=== PATIENT | female | born 1930 | race Caucasian/White ===

== ENCOUNTER 2017-04-03 06:06 | Observation (INO) | payer OTHER ==
[2017-04-03] VITALS (9 sets, daily range): BP systolic 114–148; BP diastolic 61–72; PULSE 63–84; RESP 16–20; TEMP 96.8–98.1; O2SAT 93–97
[~2017-04-03] VITALS: Ht 167.6 cm; Wt 70.4 kg
[~2017-04-03 06:06] MED LIST: ASPI81 PO; CARV12.52 OR; CENTTAB9 PO; CIPR500T4 PO; COQ1150C2 PO; COZA100T PO; D3400CAP OR; HYDR-2768 PO; MAGN250T5 OR; NIAC500T34 PO; NIFE1TAB86 PO; OMEG875C PO; OYST500T71 PO; ROSU5 PO
[2017-04-03] MEDS ORDERED: SODIUM CHLORIDE 0.9% FLUSH 10 ML FLUSH IV FLUSH PRN ×2 (06:30→09:30)
[2017-04-03] MEDS ORDERED: CARV12.52 PO (06:31)
[2017-04-03] MEDS ORDERED: MAGN400T2 PO (06:31)
[2017-04-03] MEDS ORDERED: PRAV20TA2 PO (06:31)
[2017-04-03] MEDS ORDERED: AMLO5TAB2 PO (06:31)
[2017-04-03] MEDS ORDERED: COEN400C PO (06:31)
[2017-04-03] MEDS ORDERED: CALC950T2 PO (06:31)
[2017-04-03] MEDS ORDERED: POTA10CA PO (06:31)
--- NOTE | 2017-04-03 06:45 | PD ---
HPI Chief Complaint: GI Complaint Time Seen by Provider: 06:28 Travel History International Travel<30 days: No Contact w/Intl Traveler<30days: No Traveled to known affect area: No History of Present Illness HPI Patient is an 87-year-old female presents emergency department for evaluation of mild abdominal cramping and hematochezia. Patient states that ever since she gone out to dinner tonight's ago she's been having some lower quadrant abdominal cramping intermittently. She would pass but then became alarmed this morning when she had a bowel movement and the bowl turned red. She states she thinks it was just a small amount of blood in it was diluted into the water. States is never happened to her before, denies any hypovolemic symptoms. Denies any blood thinner use, denies any fevers denies any dysuria denies any nausea or vomiting. PFSH Past Medical History Cardiovascular Problems: Yes High Cholesterol: Yes Coronary Artery Disease: Yes Diminished Hearing: No Hypertension: Yes Tetanus Vaccination: Unknown Influenza Vaccination: Yes ?: Not Menopausal: Yes Tubal Ligation: Yes Past Surgical History Cardiac Surgery: Yes Coronary Artery Bypass Graft: Yes (2008) Tonsillectomy: Yes Social History Alcohol Use: Yes (OCCASIONAL) Tobacco Use: No Substance Use: No Allergies-Medications (Allergen,Severity, Reaction): Coded Allergies: diatrizoate meglumine (Unverified Allergy, Severe, Shortness of Breath, ) gadobenic acid (Unverified Allergy, Severe, Shortness of Breath, 04/03/17) gadodiamide (Unverified Allergy, Severe, Shortness of Breath, 04/03/17) gadoteridol (Unverified Allergy, Severe, Shortness of Breath, 04/03/17) iodine (Unverified Allergy, Severe, Shortness of Breath, 04/03/17) iodixanol (Unverified Allergy, Severe, Shortness of Breath, 04/03/17) iohexol (Unverified Allergy, Severe, Shortness of Breath, 04/03/17) potassium iodide (Unverified Allergy, Severe, Shortness of Breath, ) povidone-iodine (Unverified Allergy, Severe, Shortness of Breath, 04/03/17 ) sodium iodide (Unverified Allergy, Severe, Shortness of Breath, 04/03/17) sodium iodide (Unverified Allergy, Severe, Shortness of Breath, 04/03/17) adhesive (Unverified Allergy, Intermediate, SKIN IRRITATION, 04/03/17) Reported Meds & Prescriptions Reported Meds & Active Scripts Active Reported Coq-10 (Coenzyme Q10 (Ubidecarenone)) 400 Mg Cap 100 Mg PO DAILY Pravastatin 20 Mg Tab 20 Mg PO DAILY Magnesium Oxide 400 Mg Tab 400 Mg PO DAILY Calcitrate (Calcium Citrate) 200 Mg (950 Mg) Tab 950 Mg PO Potassium Chloride ER (Potassium Chloride) 10 Meq Cap 10 Meq PO DAILY Amlodipine (Amlodipine Besylate) 5 Mg Tab 5 Mg PO DAILY Carvedilol 12.5 Mg Tab 12.5 Mg PO BID Review of Systems Except as stated in HPI: all other systems reviewed are Neg Physical Exam Narrative GENERAL: Well-developed well-nourished, no apparent distress, sitting upright in a stretcher reading from a tablet computer. SKIN: Focused skin assessment warm/dry. HEAD: Atraumatic. Normocephalic. EYES: Pupils equal and round. No scleral icterus. No injection or drainage. ENT: No nasal bleeding or discharge. Mucous membranes pink and moist. NECK: Trachea midline. No JVD. CARDIOVASCULAR: Regular rate and rhythm. No murmur appreciated. RESPIRATORY: No accessory muscle use. Clear to auscultation. Breath sounds equal bilaterally. GASTROINTESTINAL: Abdomen soft, non-tender, nondistended. Hepatic and splenic margins not palpable. No rebound no percussive tenderness, no tenderness to deep palpation. Rectal exam does show small dried blood around the anus and on the gluteal skin. There is also minimal gross blood on internal exam. Skin tags but no hemorrhoids internally nor externally. MUSCULOSKELETAL: No obvious deformities. No clubbing. No cyanosis. No edema. NEUROLOGICAL: Awake and alert. No obvious cranial nerve deficits. Motor grossly within normal limits. Normal speech. PSYCHIATRIC: Appropriate mood and affect; insight and judgment normal. Data Data Last Documented VS Vital Signs Date Time Temp Pulse Resp B/P (MAP) Pulse Ox O2 Delivery O2 Flow Rate FiO2 04/03/17 06:34 18 96 Room Air 04/03/17 06:08 97.4 84 Orders Orders Complete Blood Count With Diff (04/03/17 06:28) Comprehensive Metabolic Panel (04/03/17 06:28) Lipase (04/03/17 06:28) Prothrombin Time / Inr (Pt) (04/03/17 06:28) Act Partial Throm Time (Ptt) (04/03/17 06:28) Urinalysis - C+S If Indicated (04/03/17 06:28) Iv Access Insert/Monitor (04/03/17 06:28) Ecg Monitoring (04/03/17 06:28) Oximetry (04/03/17 06:28) Sodium Chloride 0.9% Flush (Ns Flush) (04/03/17 06:30) Ct Abd/Pel W/O Iv Contrast (04/03/17 ) Labs Laboratory Tests Test 04/03/17 06:30 MDM Medical Decision Making Medical Screen Exam Complete: Yes Emergency Medical Condition: Yes Differential Diagnosis AVM, diverticulitis, diverticulosis, malignancy seems unlikely, gastritis, gastroenteritis, colitis. Narrative Course Patient roomed in emergency department, given the patient's age workup to ensue , basic labs sent, CT abdomen without contrast ordered as patient has multiple iodine allergies. Will be discussed with the oncoming provider at 0700 to follow-up the laboratory workup and imaging and disposition appropriately. Crow Rodriguez MD Apr 03, 2017 06:45
[2017-04-03 06:48] LABS: AUTOMATED NEUTROPHIL # 8.2 TH/MM3 (1.8-7.7); BASOPHIL # 0.1 TH/MM3 (0-0.2); BASOPHIL % 0.6 % (0.0-2.0); EOSINOPHIL # 0.4 TH/MM3 (0-0.4); EOSINOPHIL % 3.5 % (0.0-4.0); HEMATOCRIT 45.4 % (35.0-46.0); LYMPH % 15.6 % (9.0-44.0); LYMPHOCYTE # 1.7 TH/MM3 (1.0-4.8); MEAN CELL VOLUME 87.5 FL (80.0-100.0); MEAN CORPUSCULAR HEMOGLOBIN 28.9 PG (27.0-34.0); MEAN CORPUSCULAR HGB CONC 33.1 % (32.0-36.0); MONO % 4.4 % (0.0-8.0); NEUT % 75.9 % (16.0-70.0); PLATELET COUNT 275 TH/MM3 (150-450); RED CELL DISTRIBUTION WIDTH 13.3 % (11.6-17.2); WHITE BLOOD COUNT 10.9 TH/MM3 (4.0-11.0)
[2017-04-03 06:50] LABS: HEMO FLAGS DIFF FINAL
[2017-04-03 06:55] LABS: CHLORIDE 104 MEQ/L (98-107); POTASSIUM 3.5 MEQ/L (3.5-5.1); SODIUM (NA) 139 MEQ/L (136-145)
[2017-04-03 06:59] LABS: ANION GAP 9 MEQ/L (5-15); APTT (PATIENT) 25.4 SEC (24.3-30.1); BICARBONATE 26.5 MEQ/L (21.0-32.0); BLOOD UREA NITROGEN 22 MG/DL (7-18); PROTHROMBIN TIME - PATIENT 11.3 SEC (9.8-11.6)
[2017-04-03 07:01] LABS: ALT (GPT) 48 U/L (10-53)
[2017-04-03 07:02] LABS: AST (GOT) 27 U/L (15-37); GLOMERULAR FILTRATION RATE 47 ML/MIN (>89)
[2017-04-03 07:03] LABS: TOTAL BILIRUBIN ADULT 0.8 MG/DL (0.2-1.0)
[2017-04-03 07:04] LABS: ALKALINE PHOSPHATASE 108 U/L (45-117)
--- NOTE | 2017-04-03 07:52 | RADRPT ---
EXAM DATE/TIME: 04/03/2017 07:27 [facility] COMPARISON: No previous studies available for comparison. INDICATIONS : Rectal bleeding. ORAL CONTRAST: No oral contrast ingested. RADIATION DOSE: 13.68 CTDIvol (mGy) MEDICAL HISTORY : Hypertension. Cardiovascular disease SURGICAL HISTORY : Tubal ligation. CABGVaginal pessary. ENCOUNTER: Initial ACUITY: 1 day PAIN SCALE: 0/10 LOCATION: rectal TECHNIQUE: Volumetric scanning of the abdomen and pelvis was performed. Using automated exposure control and ad justment of the mA and/or kV according to patient size, radiation dose was kept as low as reasonably achievable to obtain optimal diagnostic quality images. DICOM format image data is available electro nically for review and comparison. FINDINGS: LOWER LUNGS: Basilar bronchiectasis. Coronary artery atherosclerotic calcifications. Tiny hiatal hernia. LIVER: Homogeneous density without lesion. There is no dilation of the biliary tree. Small layering calcifi ed gallstones within an otherwise normal-appearing gallbladder. SPLEEN: Normal size without lesion. PANCREAS: Within normal limits. KIDNEYS: Normal in size and shape. There is no mass, stone, or hydronephrosis. Small peripelvic cysts noted o n the right. An area of cortical scarring seen involving the lateral midpole the left kidney. ADRENAL GLANDS: Within normal limits. VASCULAR: There is diffuse calcified plaque involving the aorta and its major branches. No aneurysmal change ob served. 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 BOWEL/MESENTERY: Circumferential wall thickening with stranding of the adjacent mesentery involving the descending col on. This extends from the splenic flexure to the mid sigmoid colon. There are scattered diverticuli w ithin the sigmoid colon with no diverticula appreciated in the descending component. There is no free air or free fluid. No abscess or obstruction. Stomach and small bowel are unremarkable on this unenh anced study. ABDOMINAL WALL: Within normal limits. RETROPERITONEUM: There is no lymphadenopathy. BLADDER: No wall thickening or mass. REPRODUCTIVE: A pessary is noted. The uterus lies within the midline. INGUINAL: There is no lymphadenopathy or hernia. MUSCULOSKELETAL: Within normal limits for patient age. CONCLUSION: 1. Acute inflammatory process extending from the splenic flexure to the mid sigmoid colon. This infla mmatory process could be secondary to an infectious process or could relate to ischemic colitis. 2. Left-sided IVC. 3. Cholelithiasis. 4. Bibasilar bronchiectasis.. Tip Green Jr., MD on April 03, 2017 at 7:43 Board Certified Radiologist. This report was verified electronically.
[2017-04-03] MEDS ORDERED: SODIUM CHLOR 0.9% 1000 ML INJ 1,000 ML IV ONE (08:00)
[2017-04-03 08:17] LABS: METHOD OF COLLECTION VOIDED; URINE COLOR YELLOW (YELLW/STRAW)
[2017-04-03 08:18] LABS: BLOOD, URINE LARGE (NEG); GLUCOSE,URINE NEG (NEG); KETONE, URINE NEG (NEG); NITRITE,URINE NEG (NEG)
[2017-04-03 08:20] LABS: BACTERIA, URINE FEW /hpf; COMMENT (UR) CULTURE INDICATED; CULTURE IF INDICATED CULTURE INDICATED; TRANSITIONAL EPI CELLS, URINE 0-2 /hpf; WBC, URINE INNUM /hpf (0-5)
--- NOTE | 2017-04-03 08:35 | PD ---
Physical Exam Date Seen by Provider: Apr 03, 2017 Time Seen by Provider: 08:32 Narrative 87-year-old female came to the emergency room with history of abdominal pain followed by bloody stool since last night. Patient was seen by the previous ER physician. Please refer to his history and physical for further details. Sign out was to follow-up on the labs and the CAT scan result. I had gone to see the patient earlier and she said she had some slight discomfort mostly in the lower abdominal area. Previous physician had done a rectal exam which was positive for gross blood. CBC and BMP were within acceptable limits. UA suggestive strongly of a UTI and I have ordered by mouth Macrobid for the patient. Meanwhile the CT scan was done without IV contrast since patient is allergic to the IV contrast and it shows inflammatory changes on the descending colon and the adjacent mesentery with stranding. The concern is infectious or ischemic changes of the colon. I've ordered a lactic acid at this point. Awaiting for the test result. I will also give the patient 1 L of IV fluid bolus. Her vital signs remain stable. Patient does not have the pain out of proportion presentation. Data Data Last Documented VS Vital Signs Date Time Temp Pulse Resp B/P (MAP) Pulse Ox O2 Delivery O2 Flow Rate FiO2 04/03/17 08:24 64 18 127/66 (86) 96 Room Air 04/03/17 06:08 97.4 Orders Orders Complete Blood Count With Diff (04/03/17 06:28) Comprehensive Metabolic Panel (04/03/17 06:28) Lipase (04/03/17 06:28) Prothrombin Time / Inr (Pt) (04/03/17 06:28) Act Partial Throm Time (Ptt) (04/03/17 06:28) Urinalysis - C+S If Indicated (04/03/17 06:28) Iv Access Insert/Monitor (04/03/17 06:28) Ecg Monitoring (04/03/17 06:28) Oximetry (04/03/17 06:28) Sodium Chloride 0.9% Flush (Ns Flush) (04/03/17 06:30) Ct Abd/Pel W/O Iv Contrast (04/03/17 ) Lactic Acid (04/03/17 08:00) Sodium Chlor 0.9% 1000 Ml Inj (Ns 1000 M (04/03/17 08:00) Urine Culture (04/03/17 08:00) Nitrofurantoin Monohyd Macrocr (Macrobid (04/03/17 08:45) Consult Colorectal Surgery (04/03/17 ) Admit Order (Ed Use Only) (04/03/17 09:14) Labs Laboratory Tests Test 04/03/17 06:30 04/03/17 08:00 White Blood Count 10.9 TH/MM3 Red Blood Count 5.20 MIL/MM3 Hemoglobin 15.0 GM/DL Hematocrit 45.4 % Mean Corpuscular Volume 87.5 FL Mean Corpuscular Hemoglobin 28.9 PG Mean Corpuscular Hemoglobin Concent 33.1 % Red Cell Distribution Width 13.3 % Platelet Count 275 TH/MM3 Mean Platelet Volume 8.2 FL Neutrophils (%) (Auto) 75.9 % Lymphocytes (%) (Auto) 15.6 % Monocytes (%) (Auto) 4.4 % Eosinophils (%) (Auto) 3.5 % Basophils (%) (Auto) 0.6 % Neutrophils # (Auto) 8.2 TH/MM3 Lymphocytes # (Auto) 1.7 TH/MM3 Monocytes # (Auto) 0.5 TH/MM3 Eosinophils # (Auto) 0.4 TH/MM3 Basophils # (Auto) 0.1 TH/MM3 CBC Comment DIFF FINAL Differential Comment Prothrombin Time 11.3 SEC Prothromb Time International Ratio 1.0 RATIO Activated Partial Thromboplast Time 25.4 SEC Blood Urea Nitrogen 22 MG/DL Creatinine 1.10 MG/DL Random Glucose 119 MG/DL Total Protein 7.9 GM/DL Albumin 4.0 GM/DL Calcium Level 9.2 MG/DL Alkaline Phosphatase 108 U/L Aspartate Amino Transf (AST/SGOT) 27 U/L Alanine Aminotransferase (ALT/SGPT) 48 U/L Total Bilirubin 0.8 MG/DL Sodium Level 139 MEQ/L Potassium Level 3.5 MEQ/L Chloride Level 104 MEQ/L Carbon Dioxide Level 26.5 MEQ/L Anion Gap 9 MEQ/L Estimat Glomerular Filtration Rate 47 ML/MIN Lipase 131 U/L Urine Collection Type VOIDED Urine Color YELLOW Urine Turbidity CLOUDY Urine pH 6.0 Urine Specific [place] 1.012 Urine Protein 30 mg/dL Urine Glucose (UA) NEG mg/dL Urine Ketones NEG mg/dL Urine Occult Blood LARGE Urine Nitrite NEG Urine Bilirubin NEGATIVE Urine Leukocyte Esterase LARGE Urine RBC 10-14 /hpf Urine WBC INNUM /hpf Urine WBC Clumps FEW Urine Squamous Epithelial Cells 3-5 /hpf Urine Transitional Epithelial Cells 0-2 /hpf Urine Bacteria FEW /hpf Microscopic Urinalysis Comment CULTURE INDICATED Lactic Acid Level 1.6 mmol/L MDM Supervised Visit with NINOSKA: No Narrative Course 9:12 AM lactic acid is within acceptable limits. I discussed her case with patient's colorectal surgeon Dr. Clemencia Cintron. She agreed that patient should be admitted at her age with these symptoms. She will consult on the patient. She does not recommend doing anything else at this point. I discussed with the hospitalist and he is accepted the case. I have discussed this with the patient herself and she is okay with the plan. Physician Communication Physician Communication Dr. Cintron Diagnosis Primary Impression: Colitis Additional Impressions: Hematochezia UTI (urinary tract infection) Qualified Codes: N39.0 - Urinary tract infection, site not specified Admitting Information Admitting Physician Requests: Observation Scripts Metronidazole (Metronidazole) 500 Mg Tab 500 MG PO TID for Infection, #21 TAB 0 Refills Prov: Anjelica Simmons MD 04/04/17 Ciprofloxacin (Cipro) 500 Mg Tab 500 MG PO Q12HR for Infection, #14 TAB Prov: Anjelica Simmons MD 04/04/17 Usman Fu MD Apr 03, 2017 08:35
[2017-04-03] MEDS ORDERED: NITROFURANTOIN MONOHYD MACROCR 100 MG CAP PO ONE (08:45)
[2017-04-03] MEDS ORDERED: ONDANSETRON HCL 4 MG/2 ML VIAL IVP PRN (09:30)
[2017-04-03] MEDS ORDERED: MAGNESIUM HYDROXIDE SUSP 30 ML CUP PO PRN (09:30)
[2017-04-03] MEDS ORDERED: ACETAMINOPHEN 325 MG TAB PO PRN ×2 (09:30)
[2017-04-03] MEDS ORDERED: NALOXONE HCL 0.4 MG/ML AMP IV PUSH PRN (09:30)
--- NOTE | 2017-04-03 10:47 | HHI.HP ---
[facility] Non[facility]Staff Admission Diagnosis colitis, hematochezia, UTI Diagnoses: (1) Colitis Diagnosis: Principal (2) Hematochezia Diagnosis: Principal (3) UTI (urinary tract infection) Diagnosis: Principal Chief Complaint: Abdominal pain Travel History International Travel<30 Days: No Contact w/Intl Traveler <30 Da: No Traveled to Known Affected Are: No History of Present Illness Written by Abilio Fernando, acting as scribe for Dr. Garcia on 04/03/17 at 10 :46. 87-year-old female with known history of hypertension, hyperlipidemia , coronary artery disease who presented to hospital because of abdominal pain and bright red blood per rectum. Patient indicates that she is in normal state of health until yesterday approximately 2 PM when she started developing abdominal pain located across the lower abdomen. She went to a restaurant in order to eat, however she had to go to the bathroom at that time. She stated that she had a rather large bowel movement followed by 2 other bowel movements at the restaurant. She lost her appetite and only had some chicken broth. Patient continued with lower abdominal discomfort in which she went home she had another bowel movement which she noticed that the toilet bowl was red and she saw a clot on the bottom of the toilet bowl. She states that she continued to have bowel movements throughout the evening with blood until she states that she was only having blood coming out of her rectum. Because it did not improve she came to emergency department for evaluation. Patient indicates that Dr. Cintron has done her previous colonoscopy and she has never had any problems that she knows of. She was cleared to never had colonoscopy again. The patient denies any sick contacts, diarrhea, nausea, vomiting. Patient had workup done emergency department and found to have an abnormal CT with information indicating inflammatory process possible infectious or ischemic colitis. Review of Systems Gastrointestinal: COMPLAINS OF: Abdominal pain, Bloody stools Except as stated in HPI: all other systems reviewed are Neg Past Family Social History Past Medical History Hypertension Hyperlipidemia Coronary artery disease Past Surgical History Tonsillectomy Coronary bypass surgery Tubal ligation Colonoscopy by Dr. Diez Reported Medications Reported Meds & Active Scripts Active Reported Coq-10 (Coenzyme Q10 (Ubidecarenone)) 400 Mg Cap 100 Mg PO DAILY Pravastatin 20 Mg Tab 20 Mg PO DAILY Magnesium Oxide 400 Mg Tab 400 Mg PO DAILY Calcitrate (Calcium Citrate) 200 Mg (950 Mg) Tab 950 Mg PO Potassium Chloride ER (Potassium Chloride) 10 Meq Cap 10 Meq PO DAILY Amlodipine (Amlodipine Besylate) 5 Mg Tab 5 Mg PO DAILY Carvedilol 12.5 Mg Tab 12.5 Mg PO BID Allergies: Coded Allergies: diatrizoate meglumine (Unverified Allergy, Severe, Shortness of Breath, ) gadobenic acid (Unverified Allergy, Severe, Shortness of Breath, 04/03/17) gadodiamide (Unverified Allergy, Severe, Shortness of Breath, 04/03/17) gadoteridol (Unverified Allergy, Severe, Shortness of Breath, 04/03/17) iodine (Unverified Allergy, Severe, Shortness of Breath, 04/03/17) iodixanol (Unverified Allergy, Severe, Shortness of Breath, 04/03/17) iohexol (Unverified Allergy, Severe, Shortness of Breath, 04/03/17) potassium iodide (Unverified Allergy, Severe, Shortness of Breath, ) povidone-iodine (Unverified Allergy, Severe, Shortness of Breath, 04/03/17 ) sodium iodide (Unverified Allergy, Severe, Shortness of Breath, 04/03/17) sodium iodide (Unverified Allergy, Severe, Shortness of Breath, 04/03/17) adhesive (Unverified Allergy, Intermediate, SKIN IRRITATION, 04/03/17) Family History Reviewed is significant for father from massive stroke. Mother at age 67 with hypertension Social History Patient quit smoking 50 years ago prior to that she only smokes socially. Denies any alcohol or illicit drugs Physical Exam Vital Signs Vital Signs Date Time Temp Pulse Resp B/P (MAP) Pulse Ox O2 Delivery O2 Flow Rate FiO2 04/03/17 09:56 97.9 63 16 148/67 (94) 97 04/03/17 09:44 04/03/17 08:24 64 18 127/66 (86) 96 Room Air 04/03/17 06:34 18 96 Room Air 04/03/17 06:34 18 04/03/17 06:08 97.4 84 16 136/70 (92 96 Physical Exam GENERAL: Well-developed, well-nourished, in no acute distress. alert and orientated HEENT: Head is normocephalic without any lesions or masses noted. Facial features are symmetric. Eyes: Pupils equal round reactive to light. Extraocular muscles are intact. Conjunctivae were clear. Oropharyngeal: Pharynx without any erythema edema. Tongue is midline without deviation. Buccal mucosa is moist without any masses or lesions NECK: Supple without any masses. Trachea midline no deviation. No JVD, no bruits are appreciated CARDIAC: Regular rhythm, regular rate. S1/S2 are heard. No murmurs gallops or rubs. LUNGS: Clear to auscultation bilaterally. No wheeze, rhonchi or rales. No use of accessory muscles on inspiration or expiration. ABDOMEN: Soft, nontender. Nondistended. Bowel sounds heard in all 4 quadrants. No organomegaly or masses. Negative rebound, negative guarding EXTREMITIES: No edema, pulses are equal bilaterally. No cyanosis or clubbing NEUROLOGY: Mood and affect appear appropriate. Cranial nerves II through XII grossly intact. Muscle strength 5/5 in upper and lower extremities bilaterally. Deep tendon reflexes are 2+ in upper and lower extremities bilaterally. Laboratory Laboratory Tests Test 04/03/17 06:30 04/03/17 08:00 White Blood Count 10.9 Red Blood Count 5.20 Hemoglobin 15.0 Hematocrit 45.4 Mean Corpuscular Volume 87.5 Mean Corpuscular Hemoglobin 28.9 Mean Corpuscular Hemoglobin Concent 33.1 Red Cell Distribution Width 13.3 Platelet Count 275 Mean Platelet Volume 8.2 Neutrophils (%) (Auto) 75.9 Lymphocytes (%) (Auto) 15.6 Monocytes (%) (Auto) 4.4 Eosinophils (%) (Auto) 3.5 Basophils (%) (Auto) 0.6 Neutrophils # (Auto) 8.2 Lymphocytes # (Auto) 1.7 Monocytes # (Auto) 0.5 Eosinophils # (Auto) 0.4 Basophils # (Auto) 0.1 CBC Comment DIFF FINAL Differential Comment Prothrombin Time 11.3 Prothromb Time International Ratio 1.0 Activated Partial Thromboplast Time 25.4 Blood Urea Nitrogen 22 Creatinine 1.10 Random Glucose 119 Total Protein 7.9 Albumin 4.0 Calcium Level 9.2 Alkaline Phosphatase 108 Aspartate Amino Transf (AST/SGOT) 27 Alanine Aminotransferase (ALT/SGPT) 48 Total Bilirubin 0.8 Sodium Level 139 Potassium Level 3.5 Chloride Level 104 Carbon Dioxide Level 26.5 Anion Gap 9 Estimat Glomerular Filtration Rate 47 Lipase 131 Urine Collection Type VOIDED Urine Color YELLOW Urine Turbidity CLOUDY Urine pH 6.0 Urine Specific [place] 1.012 Urine Protein 30 Urine Glucose (UA) NEG Urine Ketones NEG Urine Occult Blood LARGE Urine Nitrite NEG Urine Bilirubin NEGATIVE Urine Leukocyte Esterase LARGE Urine RBC 10-14 Urine WBC INNUM Urine WBC Clumps FEW Urine Squamous Epithelial Cells 3-5 Urine Transitional Epithelial Cells 0-2 Urine Bacteria FEW Microscopic Urinalysis Comment CULTURE INDICATED Lactic Acid Level 1.6 Date/Time Source Procedure Growth Status 04/03/17 08:00 Urine Clean Catch Urine Culture Pending Received Result Diagram: 04/03/1762904/03/17629 Caprini VTE Risk Assessment Caprini VTE Risk Assessment: Mod/High Risk (score >= 2) Caprini Risk Assessment Model Point Value = 1 Point Value = 2 Point Value = 3 Point Value = 5 Age 41-60 Minor surgery BMI > 25 kg/m2 Swollen legs Varicose veins or History of unexplained or recurrent spontaneous Oral contraceptives or hormone replacement Sepsis (< 1 month) Serious lung disease, including pneumonia (< 1 month) Abnormal pulmonary function Acute myocardial infarction Congestive heart failure (< 1 month) History of inflammatory bowel disease Medical patient at bed rest Age 61-74 Arthroscopic surgery Major open surgery (> 45 min) Laparoscopic surgery (> 45 min) Malignancy Confined to bed (> 72 hours) Immobilizing plaster cast Central venous access Age >= 75 History of VTE Family history of VTE Factor V Leiden Prothrombin [id number] Lupus anticoagulant Anticardiolipin antibodies Elevated serum homocysteine Heparin-induced thrombocytopenia Other congenital or acquired thrombophilia Stroke (< 1 month) Elective arthroplasty Hip, pelvis, or leg fracture Acute spinal cord injury (< 1 month) Prophylaxis Regimen Total Risk Factor Score Risk Level Prophylaxis Regimen 0-1 Low Early ambulation 2 Moderate Order ONE of the following: *Sequential Compression Device (SCD) *Heparin 5000 units SQ BID 3-4 Higher Order ONE of the following medications: *Heparin 5000 units SQ TID *Enoxaparin/Lovenox 40 mg SQ daily (WT < 150 kg, CrCl > 30 mL/min) *Enoxaparin/Lovenox 30 mg SQ daily (WT < 150 kg, CrCl > 10-29 mL/min) *Enoxaparin/Lovenox 30 mg SQ BID (WT < 150 kg, CrCl > 30 mL/min) AND/OR *Sequential Compression Device (SCD) 5 or more Highest Order ONE of the following medications: *Heparin 5000 units SQ TID (Preferred with Epidurals) *Enoxaparin/Lovenox 40 mg SQ daily (WT < 150 kg, CrCl > 30 mL/min) *Enoxaparin/Lovenox 30 mg SQ daily (WT < 150 kg, CrCl > 10-29 mL/min) *Enoxaparin/Lovenox 30 mg SQ BID (WT < 150 kg, CrCl > 30 mL/min) AND *Sequential Compression Device (SCD) Assessment and Plan Problem List: (1) Hematochezia ICD Code: K92.1 - Melena Status: Acute (2) Colitis ICD Code: K52.9 - Noninfective gastroenteritis and colitis, unspecified Status: Acute (3) UTI (urinary tract infection) ICD Code: N39.0 - Urinary tract infection, site not specified Status: Acute Assessment and Plan 87 year-old female who presented with abdominal pain, hematochezia Colitis CT scan indicates acute inflammatory process extending from the splenic flexure to the mid sigmoid colon. Related to infectious process versus ischemic colitis Colorectal specialist indicated patient should be admitted considering her age and she will see the patient in consult Patient without any leukocytosis, febrile illness, no diarrhea illness we'll hold any antibiotics at this time Patient lactic acid level is normal Further recommendations from colorectal specialist Continue IV fluids and start Flagyl and Cipro as well as Lactinex Urinary tract infection s/p Macrobid, will switch to Cipro Await culture for further antibiotic recommendations Hypertension, coronary artery disease, hyperlipidemia Home medications continued DVT prevention sequential compression devices, avoid chemical prophylaxis secondary to hematochezia This note was transcribed by sravanthi Fernando. I, Dr. Lalo Garcia personally performed the history, physical exam, and medical decision making; and confirmed the accuracy of the information in the transcribed note. Authenticated by Dr. Lalo Garcia on 04/03/17 at 10:46. Code Status Full code Discussed Condition With Patient, ED physician Problem Qualifiers (1) UTI (urinary tract infection): Qualified Codes: N39.0 - Urinary tract infection, site not specified Abilio Fernando Apr 03, 2017 10:47 Lalo Garcia MD Apr 03, 2017 10:47
[2017-04-03] MEDS: SODIUM CHLOR 0.9% 1000 ML INJ 1,000 ML IV SCH (14:06)
[2017-04-03] MEDS: metroNIDAZOLE 500 MG INJ 100 ML IV SCH ×2 (14:07→20:54)
--- NOTE | 2017-04-03 15:53 | MB ---
cc: SIMI MENDOZA M.D. DATE OF CONSULTATION 04/03/2017 CHIEF COMPLAINT Rectal bleeding. HISTORY OF PRESENT ILLNESS The patient is an 87-year-old female who is well known to me and I actually saw her I think three years ago for a colonoscopy. She has been in her normal good state of health until yesterday when she began having some crampy lower abdominal pain. This was intermittent and she went to the bathroom several times in a row. The first time was formed stool, the second two times were loose stools. She ate very light for the evening and she continued to have intermittent cramping and at home later that night she began having bright red blood plus clots in the bowel movement. She thinks she possibly had four episodes of rectal bleeding. None of them were as much as a cup at a time. She came to the emergency room for evaluation. She denies any previous constipation or diarrhea prior to yesterday. She denies any history of any of her contacts having similar sorts of symptoms. She was evaluated in emergency room and a CT scan showed some inflammation in her descending colon and she has been admitted for observation. PAST MEDICAL HISTORY 1. Hypertension. 2. Coronary artery disease. 3. Hyperlipidemia. PAST SURGICAL HISTORY 1. Tonsillectomy. 2. CABG. 3. Tubal ligation. ALLERGIES DIATRIZOATE, GADOBENIC ACID, GADODIAMIDE, GADATERODOL, IODINE, IODOXINOL, IOHEXOL, POTASSIUM IODIDE, BASICALLY THOSE ARE ALL IODIDES. AND ADHESIVE. MEDICATIONS 1. Pravastatin. 2. Amlodipine. 3. Carvedilol. 4. Potassium. 5. Magnesium. 6. Co-Q10. 7. Calcium citrate. SOCIAL HISTORY The patient has a distant smoking history. Denies any alcohol. PHYSICAL EXAMINATION GENERAL: Reveals an alert female who appears younger than her stated age. NEUROLOGIC: Grossly intact. SKIN: Warm, dry. CARDIOVASCULAR: Regular rate. CHEST: Breathing is symmetric bilaterally and nonlabored. ABDOMEN: Soft and nontender. Nondistended. EXTREMITIES: Reveal no edema. LABORATORY DATA Laboratory work reveals a white count of 10.9, hemoglobin of 15, platelets of 275. Chemistry shows a sodium of 139, potassium 3.5, chloride 104, bicarb is 26.5, BUN is 22, creatinine is 1.1 and glucose is 119. Coags are normal. Urinalysis does show some signs of infection, and culture is pending. IMPRESSION Mild colitis. It is difficult to be sure whether this is infectious or otherwise. I think that close observation over the next 24 hours as well as stool studies if she has any further liquid stools to rule out source of infection would be prudent. I will continue to follow along with you. Thank you very much for your kind referral. MD GRAY Pardo/CHANG /3:26 PM /3:34 PM
[2017-04-03] MEDS ORDERED: NITROFURANTOIN MONOHYD MACROCR 100 MG CAP PO SCH (18:00)
[2017-04-03] MEDS: CIPROFLOXACIN 500 MG TAB PO SCH (20:54)
[2017-04-03] MEDS: CARVEDILOL 12.5 MG TAB PO SCH (20:55)
[2017-04-03] MEDS: amLODIPine BESYLATE 5 MG TAB PO SCH (20:55)
[2017-04-03] MEDS: LACTOBACILLUS ACIDOPHILUS TAB PO SCH (20:55)
[2017-04-03] MEDS: SODIUM CHLORIDE 0.9% FLUSH 10 ML FLUSH IV FLUSH SCH (20:56)
[2017-04-04] VITALS: BP 115/57; PULSE 65; RESP 18; TEMP 98.2; O2SAT 92
[2017-04-04] MEDS: SODIUM CHLOR 0.9% 1000 ML INJ 1,000 ML IV SCH (00:18)
[2017-04-04] MEDS: metroNIDAZOLE 500 MG INJ 100 ML IV SCH (04:53)
[2017-04-04 06:19] LABS: AUTOMATED NEUTROPHIL # 4.8 TH/MM3 (1.8-7.7); BASOPHIL % 0.5 % (0.0-2.0); EOSINOPHIL # 0.7 TH/MM3 (0-0.4); EOSINOPHIL % 8.3 % (0.0-4.0); HEMO FLAGS DIFF FINAL; LYMPH % 24.7 % (9.0-44.0); MEAN CELL VOLUME 89.6 FL (80.0-100.0); MEAN CORPUSCULAR HEMOGLOBIN 29.6 PG (27.0-34.0); MONO % 9.7 % (0.0-8.0); NEUT % 56.8 % (16.0-70.0); PLATELET COUNT 209 TH/MM3 (150-450); RED BLOOD COUNT 4.13 MIL/MM3 (4.00-5.30); RED CELL DISTRIBUTION WIDTH 13.8 % (11.6-17.2); WHITE BLOOD COUNT 8.3 TH/MM3 (4.0-11.0)
[2017-04-04 06:26] LABS: CHLORIDE 110 MEQ/L (98-107); POTASSIUM 3.5 MEQ/L (3.5-5.1); SODIUM (NA) 144 MEQ/L (136-145)
[2017-04-04 06:51] LABS: ALKALINE PHOSPHATASE 76 U/L (45-117); ALT (GPT) 31 U/L (10-53); ANION GAP 9 MEQ/L (5-15); AST (GOT) 15 U/L (15-37); BICARBONATE 25.3 MEQ/L (21.0-32.0); BLOOD UREA NITROGEN 16 MG/DL (7-18); GLOMERULAR FILTRATION RATE 77 ML/MIN (>89); TOTAL BILIRUBIN ADULT 0.5 MG/DL (0.2-1.0)
[2017-04-04 08:31] VITALS: BP 140/76; PULSE 67; RESP 16; TEMP 97.4; O2SAT 95
[2017-04-04] MEDS ORDERED: PRAVASTATIN SOD 20 MG TAB PO SCH (09:00)
[2017-04-04] MEDS ORDERED: amLODIPine BESYLATE 5 MG TAB PO SCH (09:00)
[2017-04-04] MEDS: amLODIPine BESYLATE 5 MG TAB PO SCH (09:22)
[2017-04-04] MEDS: CARVEDILOL 12.5 MG TAB PO SCH (09:22)
[2017-04-04] MEDS: LACTOBACILLUS ACIDOPHILUS TAB PO SCH (09:23)
[2017-04-04] MEDS: CIPROFLOXACIN 500 MG TAB PO SCH (09:23)
[2017-04-04] MEDS: SODIUM CHLORIDE 0.9% FLUSH 10 ML FLUSH IV FLUSH SCH (09:23)
[2017-04-04] MEDS ORDERED: METR1TAB76 PO (10:28)
[2017-04-04] MEDS ORDERED: CIPR-9 PO (10:28)
--- NOTE | 2017-04-04 10:29 | HHI.DCPOC ---
Discharge Care Plan Diagnosis: (1) Colitis Goals to Promote Your Health * To prevent worsening of your condition and complications * To maintain your health at the optimal level Directions to Meet Your Goals Take your medications as prescribed Follow your dietary instruction Follow activity as directed Keep your appointments as scheduled Take your immunizations and boosters as scheduled If your symptoms worsen call your PCP, if no PCP go to Urgent Care Center or Emergency Room Smoking is Dangerous to Your Health. Avoid second hand smoke Call the 24-hour hour crisis hotline for domestic abuse at Anjelica Simmons MD Apr 04, 2017 10:29
--- NOTE | 2017-04-04 10:33 | HHI.DS ---
cc: Clemencia Cintron MD Discharge Summary Admission Date Apr 03, 2017 at 09:16 Discharge Date: Apr 04, 2017 Admitting Diagnosis colitis, hematochezia, UTI (1) Hematochezia ICD Code: K92.1 - Melena Status: Acute (2) Colitis ICD Code: K52.9 - Noninfective gastroenteritis and colitis, unspecified Status: Acute (3) UTI (urinary tract infection) ICD Code: N39.0 - Urinary tract infection, site not specified Status: Acute Procedures none Brief History - From Admission Written by Abilio Fernando, acting as scribe for Dr. Garcia on 04/03/17 at 10 :46. 87-year-old female with known history of hypertension, hyperlipidemia , coronary artery disease who presented to hospital because of abdominal pain and bright red blood per rectum. Patient indicates that she is in normal state of health until yesterday approximately 2 PM when she started developing abdominal pain located across the lower abdomen. She went to a restaurant in order to eat, however she had to go to the bathroom at that time. She stated that she had a rather large bowel movement followed by 2 other bowel movements at the restaurant. She lost her appetite and only had some chicken broth. Patient continued with lower abdominal discomfort in which she went home she had another bowel movement which she noticed that the toilet bowl was red and she saw a clot on the bottom of the toilet bowl. She states that she continued to have bowel movements throughout the evening with blood until she states that she was only having blood coming out of her rectum. Because it did not improve she came to emergency department for evaluation. Patient indicates that Dr. Cintron has done her previous colonoscopy and she has never had any problems that she knows of. She was cleared to never had colonoscopy again. The patient denies any sick contacts, diarrhea, nausea, vomiting. Patient had workup done emergency department and found to have an abnormal CT with information indicating inflammatory process possible infectious or ischemic colitis. CBC/BMP: 04/04/17 0535 04/04/17 0535 Significant Findings Laboratory Tests Test 04/03/17 06:30 04/03/17 08:00 04/04/17 05:35 Neutrophils (%) (Auto) 75.9 % (16.0-70.0) Neutrophils # (Auto) 8.2 TH/MM3 (1.8-7.7) Blood Urea Nitrogen 22 MG/DL (7-18) Creatinine 1.10 MG/DL (0.50-1.00) Random Glucose 119 MG/DL (74-106) Estimat Glomerular Filtration Rate 47 ML/MIN (>89) 77 ML/MIN (>89) Urine Turbidity CLOUDY (CLEAR) Urine Protein 30 mg/dL (NEG-TRACE) Urine Occult Blood LARGE (NEG) Urine Leukocyte Esterase LARGE (NEG) Urine RBC 10-14 /hpf (0-3) Urine WBC INNUM /hpf (0-5) Urine WBC Clumps FEW (NONE) Urine Bacteria FEW /hpf (NONE) Monocytes (%) (Auto) 9.7 % (0.0-8.0) Eosinophils (%) (Auto) 8.3 % (0.0-4.0) Eosinophils # (Auto) 0.7 TH/MM3 (0-0.4) Total Protein 6.1 GM/DL (6.4-8.2) Albumin 3.0 GM/DL (3.4-5.0) Calcium Level 8.2 MG/DL (8.5-10.1) Chloride Level 110 MEQ/L (98-107) Imaging Last Impressions Abdomen/Pelvis CT 04/03/17 0000 Signed Impressions: Service Date/Time: Monday, April 03, 2017 07:27 - CONCLUSION: 1. Acute inflammatory process extending from the splenic flexure to the mid sigmoid colon. This inflammatory process could be secondary to an infectious process or could relate to ischemic colitis. 2. Left-sided IVC. 3. Cholelithiasis. 4. Bibasilar bronchiectasis.. Tip Kinney Jr., MD PE at Discharge GENERAL: This is a well-nourished, well-developed patient, in no apparent distress. CARDIOVASCULAR: Regular rate and rhythm without murmurs, gallops, or rubs. RESPIRATORY: Clear to auscultation. Breath sounds equal bilaterally. No wheezes , rales, or rhonchi. GASTROINTESTINAL: Abdomen soft, non-tender, nondistended. Normal active bowel sounds MUSCULOSKELETAL: Extremities without clubbing, cyanosis, or edema. NEURO: Alert & Oriented x4 to person, place, time, situation. Moves all ext x4 Pt update on day of discharge Patient seen and evaluated today in follow-up for primary blood per rectum with pain. Likely inflammatory ischemic event versus infectious. We'll continue with oral antibiotics. Pain and bleeding resolved. Hemoglobin is stable. Discharge plan discussed with nursing team and patient as well as daughter at bedside Hospital Course This patient is a 87-year-old female who had painless bleeding per rectum. Hemoglobin remained stable. Patient had CT which did show some inflammation which was concerning for either infectious versus ischemic colitis. Patient was seen by colorectal surgery recommended for continued supportive care. She tolerated antibiotics without difficulty. No further bleeding was noted and the patient went home Pt Condition on Discharge: Good Discharge Disposition: Discharge Home Discharge Time: <= 30 minutes Discharge Instructions DIET: Follow Instructions for: Heart Healthy Diet Activities you can perform: Regular-No Restrictions Follow up Referrals: Colorectal Surgery - 1 Week with Clemencia Cintron MD New Medications: Metronidazole (Metronidazole) 500 Mg Tab 500 MG PO TID for Infection, #21 TAB 0 Refills Ciprofloxacin (Cipro) 500 Mg Tab 500 MG PO Q12HR for Infection, #14 TAB Continued Medications: Amlodipine (Amlodipine) 5 Mg Tab 5 MG PO DAILY for Blood Pressure Management, #30 TAB 0 Refills Calcium Citrate (Calcitrate) 200 Mg (950 Mg) Tab 950 MG PO for Calcium Supplement, TAB 0 Refills Carvedilol (Carvedilol) 12.5 Mg Tab 12.5 MG PO BID, #60 TAB 0 Refills Coenzyme Q10 (Ubidecarenone) (Coq-10) 400 Mg Cap 100 MG PO DAILY Magnesium Oxide (Magnesium Oxide) 400 Mg Tab 400 MG PO DAILY for Nutritional Supplement, TAB 0 Refills Potassium Chloride ER (Potassium Chloride ER) 10 Meq Cap 10 MEQ PO DAILY for Electrolyte Replacement, #30 CAP 0 Refills Pravastatin (Pravastatin) 20 Mg Tab 20 MG PO DAILY for Cholesterol Management, #30 TAB 0 Refills Anjelica Simmons MD Apr 04, 2017 10:33
== END 2017-04-04 13:14 | disposition home or self-care (01) ==
LOC: PHED 06:06 → PHEDA 09:16 → PH3B 09:45
PROVIDERS: ADMIT Hospitalist; ATTEND Hospitalist
DX: K52.9 Noninfective gastroenteritis and colitis, unspecified (principal); K92.1 Melena; N39.0 Urinary tract infection, site not specified; E78.00 Pure hypercholesterolemia, unspecified; I25.10 Atherosclerotic heart disease of native coronary artery without angina pectoris; I10 Essential (primary) hypertension; Z87.891 Personal history of nicotine dependence; Z95.1 Presence of aortocoronary bypass graft
CPT/HCPCS: 74176; 80053; 81001; 83605; 83690; 85025; 85610; 85730; 87015; 87086; 96361; 96365; 96366; 97163; 99285; G0378; G8987; G8988; J7030

== ENCOUNTER 2018-01-03 18:22 | Inpatient (IN) ==
[2018-01-03] MEDS ORDERED: Tetanus/Diphtheria Toxoid Adult Vaccine Inj 0.5 ML Vial IM ONE (19:51)
--- NOTE | 2018-01-03 20:29 | ED ---
HPI General Chief Complaint: Fall Stated Complaint: fall Time Seen by Provider: 01/03/18 19:33 Source: patient Mode of arrival: ambulatory Limitations: no limitations History of Present Illness HPI Narrative: 87-year-old female presents to the emergency department by private transportation the care of her friend for evaluation of right hip pain. Patient states around 1:30 to 2 PM today she was trying to walk into the door and 2 large dogs were coming out and knocked her down. She states she landed on her right hip on concrete. Patient states she did not hit her head did not have loss of consciousness did not injure her neck upper back or lower back. Patient denies any flank pain. Patient denies any chest pain palpitations rib pain shortness of breath or abdominal pain. Patient denies any upper extremity numbness tingling or weakness but did sustain some superficial abrasions to the right upper extremity. Patient states she was able to get up off of the ground on her own. Patient states pain has persisted and worsened since that time. Patient rates her discomfort with movement or attempted standing is 8/10 in intensity. Patient does not take any blood thinning agents other than aspirin. Patient has history of hypertension and dyslipidemia and prior cabg. Patient does not report any preceding symptoms prior to her fall such as headache dizziness visual disturbance palpitations sweats nausea vomiting chest pain shortness of breath abdominal pain flank pain upper or lower extremity numbness tingling or weakness and denies MD complaint: fall Onset (ago): hour(s) Fall from: standing Fall witnessed: yes, by family Place fall occurred: home Loss of consciousness: none Prolonged down time: no Symptoms prior to fall: none Context: other (knocked over by dogs) Location of injury: pelvis (right hip) Severity: moderate Quality: dull and aching Associated symptoms (after fall): unable to walk (painful to walk) Related Data Home Medications Medication Instructions Recorded Confirmed Aspir-Low 81 PO 01/03/18 amlodipine 5 mg PO BID 01/03/18 01/03/18 calcitonin (salmon) 1 spray INTRANASAL (ALT) DAILY 01/03/18 01/03/18 carvedilol 12.5 mg PO BID 01/03/18 01/03/18 potassium chloride 10 meq PO DAILY 01/03/18 pravastatin 20 mg PO DAILY 01/03/18 01/03/18 Allergies Allergy/AdvReac Type Severity Reaction Status Date / Time diatrizoate meglumine Allergy Severe Shortness Verified 01/03/18 18:32 of Breath gadobenic acid Allergy Severe Shortness Verified 01/03/18 18:32 of Breath gadodiamide Allergy Severe Shortness Verified 01/03/18 18:32 of Breath gadoteridol Allergy Severe Shortness Verified 01/03/18 18:32 of Breath iodine Allergy Severe Shortness Verified 01/03/18 18:32 of Breath iodixanol Allergy Severe Shortness Verified 01/03/18 18:32 of Breath iohexol Allergy Severe Shortness Unverified 01/03/18 18:32 of Breath potassium iodide Allergy Severe Shortness Verified 01/03/18 18:32 of Breath povidone-iodine Allergy Severe Shortness Verified 01/03/18 18:32 of Breath sodium iodide Allergy Severe Shortness Verified 01/03/18 18:32 of Breath sodium iodide Allergy Severe Shortness Unverified 04/03/17 06:25 of Breath adhesive Allergy Intermediate SKIN Unverified 04/03/17 06:25 IRRITATION Review of Systems ROS: all other systems reviewed are negative [facility] Medical History Medical History High cholesterol (Acute) History of hypertension (Acute) Osteoporosis (Acute) Surgical History Surgical History Hx of coronary artery bypass surgery (Acute) Hx of tonsillectomy (Acute) Social History Social History Substance History: No History of Abuse Second Hand Smoke Exposure: No Smoking Status: Former smoker Tobacco Type: Cigarettes How Often Do You Have a Drink Containing Alcohol: Monthly or less Recent Travel in [facility] within the Last 8 Weeks: No Recent Out of Country Travel within the Last 8 Weeks: No Immunization History Tetanus Immunization: Unsure Hx Influenza Vaccine This Season: Yes Exam Narrative Exam Narrative: GENERAL: Well-developed well-nourished female in no acute distress no respiratory distress GCS 15 SKIN: Focused skin assessment warm/dry. Superficial abrasions to the right upper extremity and hand. HEAD: Atraumatic. Normocephalic. No scalp soft tissue tenderness abrasion ecchymosis laceration or bony abnormality. EYES: Pupils equal and round. No scleral icterus. No injection or drainage. ENT: No nasal bleeding or discharge. Mucous membranes pink and moist. No hemotympanum bilaterally. NECK: Trachea midline. No JVD. No midline tenderness to direct palpation along the cervical spine no bony step-off CARDIOVASCULAR: Regular rate and rhythm. No murmur appreciated. Chest wall: No rib or sternum tenderness to palpation no ecchymosis no abrasion no subcutaneous emphysema RESPIRATORY: No accessory muscle use. Clear to auscultation. Breath sounds equal bilaterally. GASTROINTESTINAL: Abdomen soft, non-tender, nondistended. Hepatic and splenic margins not palpable. No ecchymosis or abrasion nontender to palpation. MUSCULOSKELETAL: No obvious deformities. No clubbing. No cyanosis. No edema. Pelvic rock is stable. Patient has equal limb length bilateral dorsalis pedis pulses 2+ to palpation capillary refill brisk and less than 2 seconds per digit no internal or external rotation of either lower extremity patient does however demonstrate pain with attempted hip flexion affecting the right hip. NEUROLOGICAL: Awake and alert. No obvious cranial nerve deficits. Motor grossly within normal limits. Normal speech. PSYCHIATRIC: Appropriate mood and affect; insight and judgment normal. Course Initial Documented Vital Signs Temperature 97.8 F 01/03/18 18:28 Pulse Rate 78 01/03/18 18:28 Respiratory Rate 16 01/03/18 18:28 Blood Pressure 152/79 H 01/03/18 18:28 Pulse Oximetry 95 01/03/18 18:28 Last Documented Vital Signs Temperature 97.8 F 01/03/18 18:28 Pulse Rate 75 01/03/18 22:37 Respiratory Rate 18 01/03/18 22:37 Blood Pressure 153/85 H 01/03/18 22:37 Pulse Oximetry 97 01/03/18 22:37 Medical Decision Making [facility] Narrative Medical decision making narrative: 87-year-old female status post mechanical fall approximately 5 hours prior to arrival to the emergency department with progressive pain since onset of fall. Patient initially able to get up independently and ambulate now presents by private vehicle for hip pain and evaluation. At 10:30 PM patient identified to have a subcapital nondisplaced fracture of the right femoral neck by CT noncontrast per reading radiologist; patient informed of fracture; medicine service called for admission with consult to orthopedist in the a.m. Dr. Encarnacion is on-call for patient's orthopedist Dr Ahmadi. Medical Screen Exam Complete: Yes Emergency Medical Condition: Yes Differential Diagnosis Differential Diagnosis: Contusion fracture subluxation dislocation Medical Records Medical records reviewed: Yes I reviewed the patient's medical records. Lab Data Result diagrams: 01/03/18 22:46 01/03/18 22:46 Lab Results 01/03/18 01/03/18 Range/Units 22:46 22:46 PT 10.8 (9.8-11.6) sec INR 1.1 Ratio APTT 25.6 (24.3-30.1) sec Sodium 142 (136-145) meq/L Potassium 3.8 (3.5-5.1) meq/L Chloride 106 (98-107) meq/L Carbon Dioxide 27.5 (21.0-32.0) meq/L Anion Gap 9 (5-15) meq/L BUN 16 (7-18) mg/dL Creatinine 0.91 (0.50-1.00) mg/dL Estimated GFR 58 L (>89) mL/min Random Glucose 117 H (74-106) mg/dL Calcium 9.2 (8.5-10.1) mg/dL Total Bilirubin 0.9 (0.2-1.0) mg/dL AST 27 (15-37) U/L ALT 38 (10-53) U/L Total Protein 7.2 (6.4-8.2) g/dL Albumin 3.9 (3.4-5.0) g/dL Imaging Data Radiologist's impression: Femur X-Ray 01/03/18 19:49 CONCLUSION: No acute abnormality is seen. Hip X-Ray 01/03/18 19:49 CONCLUSION: No acute abnormality is seen. Hip CT 01/03/18 21:12 CONCLUSION: 1. Subcapital femoral neck fracture on the right. ECG Data EKG Prior to Arrival: No Prior ECG tracings: not available for review Interpretation: EKG sinus rhythm rate [address] elevation or injury pattern change interventricular conduction delay noted Discharge Plan Discharge Disposition Patient Disposition: 30 Still Patient Discharge Condition Condition: Stable Discharge Details Diagnosis: Hip fracture, right, Contusion of pelvis Physicians Team ED Provider: Britt Lawrence Primary Care Provider: UNKNOWN, Attending Provider: Gonzalo Carlson Status ED Status: Admitted Patient
--- NOTE | 2018-01-03 20:33 | XR ---
EXAM DATE: 01/03/2018 8:27 PM EDT AGE/SEX: 87 years / Female INDICATIONS: Patient complains of right femur pain status post fall. CLINICAL DATA: This is the patient's initial encounter. Patient reports that signs and symptoms have been present for 1 day and indicates a pain score of 5/10. MEDICAL/SURGICAL HISTORY: None. None. COMPARISON: [facility], HIP RIGHT W AP PELVIS 2V, 01/03/2018. . FINDINGS: No fracture is seen. The right hip joint and right knee joints appear aligned. Vascular calcification s are seen. The bones are osteopenic. CONCLUSION: No acute abnormality is seen. Electronically signed by: Ramón Harrell MD 01/03/2018 8:31 PM EDT
--- NOTE | 2018-01-03 20:34 | XR ---
EXAM DATE: 01/03/2018 8:27 PM EDT AGE/SEX: 87 years / Female INDICATIONS: Patient complains of right hip pain status post fall. CLINICAL DATA: This is the patient's initial encounter. Patient reports that signs and symptoms have been present for 1 day and indicates a pain score of 7/10. MEDICAL/SURGICAL HISTORY: None. None. COMPARISON: [facility], FEMUR RIGHT 2V, 01/03/2018. . FINDINGS: The hip joints are normally aligned. No fracture is seen. The sacroiliac joints are intact. There is degenerative change of the lumbar spine. The bones are osteopenic. Vascular calcifications are seen. There is a plastic density seen over the pubic symphysis region which may be something on the patien t or related to a support device. CONCLUSION: No acute abnormality is seen. Electronically signed by: Ramón Harrell MD 01/03/2018 8:33 PM EDT
[2018-01-03] MEDS ORDERED: Ketorolac Inj 30 MG/ML (IVP) Vial IV.PUSH ONE (21:13)
[2018-01-03] MEDS ORDERED: Morphine Inj 4 MG/ML Vial IV.PUSH ONE (21:14)
--- NOTE | 2018-01-03 22:25 | CT ---
EXAM DATE: 01/03/2018 10:19 PM EDT AGE/SEX: 87 years / Female INDICATIONS: Right hip pain post fall. CLINICAL DATA: This is the patient's initial encounter. Patient reports that signs and symptoms have been present for 1 day and indicates a pain score of 10/10. MEDICAL/SURGICAL HISTORY: None. None. RADIATION DOSE: 19.85 CTDI (mGy) COMPARISON: [facility], CT ABDOMEN & PELVIS W/O CONTRAST, 04/03/2017. [facility], HIP RIGHT W AP PELVIS 2V, 01/03/2018. . TECHNIQUE: Multiple contiguous axial images were acquired using a multirow detector CT scanner witho ut contrast. Multiplanar reconstruction was performed in the sagittal and coronal planes. Using aut omated exposure control and adjustment of the mA and/or kV according to patient size, radiation dose was kept as low as reasonably achievable to obtain optimal diagnostic quality images. DICOM format i mage data is available electronically for review and comparison. FINDINGS: Bones: There is disruption of the superior lateral cortex at the proximal femoral neck region on the right. There also appears to be increased sclerosis in the medullary space likely from compression. The hip joint is normally aligned. Many bony structures are intact. There is degenerative change in t he lower lumbar spine. Joints: No significant arthropathy or bony hypertrophy is seen. The articular surface of the femora l head is smooth. Soft Tissues: Unremarkable for a non-contrast study. There is a support apparatus seen in the inferi or vagina. CONCLUSION: 1. Subcapital femoral neck fracture on the right. Electronically signed by: Ramón Harrell MD 01/03/2018 10:24 PM EDT
[2018-01-03] MEDS ORDERED: Bisacodyl 10 MG Supp RECTAL PRN (22:57)
[2018-01-03 23:04] LABS: Chloride 106 meq/L (98-107); Potassium 3.8 meq/L (3.5-5.1); Sodium 142 meq/L (136-145)
[2018-01-03 23:07] LABS: Calcium 9.2 mg/dL (8.5-10.1)
[2018-01-03 23:08] LABS: Albumin 3.9 g/dL (3.4-5.0); Anion Gap 9 meq/L (5-15); Blood Urea Nitrogen 16 mg/dL (7-18); Carbon Dioxide 27.5 meq/L (21.0-32.0); Glucose,Random 117 mg/dL (74-106)
[2018-01-03 23:09] LABS: Activated Partial Thrombo Time 25.6 sec (24.3-30.1); INR 1.1 Ratio; Prothrombin Time 10.8 sec (9.8-11.6)
[2018-01-03 23:11] LABS: Alanine Aminotransferase 38 U/L (10-53); Aspartate Aminotransferase 27 U/L (15-37); Glomerular Filtration Rate 58 mL/min (>89)
[2018-01-03 23:12] LABS: Total Protein 7.2 g/dL (6.4-8.2)
[2018-01-03 23:14] LABS: Alkaline Phosphatase 78 U/L (45-117)
--- NOTE | 2018-01-03 23:14 | XR ---
EXAM DATE: 01/03/2018 11:05 PM EDT AGE/SEX: 87 years / Female INDICATIONS: Evaluate for pneumonia, pneumothorax, or communicable diseases. Pre-op hip ORIF. CLINICAL DATA: This is the patient's initial encounter. Patient reports that signs and symptoms have been present for 1 day and indicates a pain score of 0/10. MEDICAL/SURGICAL HISTORY: None. CABG. COMPARISON: [facility], CHEST PA & LAT, 02/10/2012. . FINDINGS: Trace atelectasis seen in both bases. No evidence of pneumonia. No pleural effusion or pneumothorax. Heart size stable, within normal limits. Median sternotomy changes are again noted. CONCLUSION: Trace bibasilar atelectasis. Otherwise negative. Electronically signed by: Ramón Sandoval MD 01/03/2018 11:12 PM EDT
[2018-01-03 23:45] LABS: Baso % (Auto) 0.1 % (0.0-2.0); Eos # (Auto) 0.2 th/mm3 (0.0-0.4); Eos % (Auto) 1.9 % (0.0-4.0); Hematocrit 44.5 % (35.0-46.0); Hemoglobin 15.2 gm/dL (11.6-15.3); Lymph # (Auto) 1.3 th/mm3 (1.0-4.8); Lymph % (Auto) 10.6 % (9.0-44.0); Mean Corpuscular HGB Conc 34.2 % (32.0-36.0); Mean Corpuscular Hemoglobin 30.5 pg (27.0-34.0); Mean Corpuscular Volume 89.3 fL (80.0-100.0); Mean Platelet Volume 9.3 fL (7.0-11.0); Mono # (Auto) 0.8 th/mm3 (0.0-0.9); Mono % (Auto) 6.3 % (0.0-8.0); Neut % (Auto) 81.1 % (16.0-70.0); Platelet Count 221 th/mm3 (150-450); Red Blood Count 4.98 mil/mm3 (4.00-5.30); Red Cell Distribution Width 14.1 % (11.6-17.2); White Blood Count 12.3 th/mm3 (4.0-11.0)
[2018-01-03 23:58] LABS: Bilirubin,Urine Negative (Negative); Clarity,Urine Clear (Clear); Color,Urine Yellow (Yellw/Straw); Glucose,Urine (UA) Negative (Negative); Leukocyte Esterase,Urine Negative (Negative); Nitrite,Urine Negative (Negative); PH,Urine 7.5 (5.0-8.5); Urobilinogen,Urine 0.2 mg/dL (Less than 2)
[2018-01-04 00:25] LABS: Squamous Epithelial Cell,Urine 0-5 /hpf (0-5)
[2018-01-04] MEDS ORDERED: Morphine Inj 4 MG/ML Vial IV.PUSH PRN (04:09)
--- NOTE | 2018-01-04 04:45 | P.HPIM ---
History of Present Illness Primary Care Physician: UNKNOWN History of Present Illness: 87-year-old female with a history of hypertension anemia presented to the ED with complaints of right hip pain. Patient states she came home this afternoon and was walking in through the front door when the 2 dogs she was dog sitting for tried to get out and knocked her down. She states she is not landed on her right hip. States the pain is a throbbing, intermittent, 7/10, with no radiation or associated symptoms, worse with movement, better with pain medication. She denies any chest pain, shortness of breath, fever or chills. Inpatient Certification: I certify that the inpatient services were ordered in accordance with Medicare regulations governing the order. This includes certification that hospital inpatient services are reasonable and necessary and in the case of services not specified as inpatient-only under 42 CFR 419.22(n), that they are appropriately provided as inpatient services in accordance to with the 2-midnight benchmark under 43 CFR 412.3(e) Estimated Total Length of Stay (Days): 3 Plans for Post Hospital Care: SNF Review of Systems All other systems reviewed negative except as stated in HPI PMFSH - History History Provided By: Patient - Medical History Medical History: Medical History (Last Reviewed 01/03/18 @ 20:26 by Britt Lawrence MD) High cholesterol History of hypertension Osteoporosis - Surgical History Surgical History: Surgical History (Last Reviewed 01/03/18 @ 20:26 by Britt Lawrence MD) Hx of coronary artery bypass surgery Hx of tonsillectomy - Family History Family History: Family History (Last Updated 01/04/18 @ 04:31 by MOHAN Roberts) Father CVA (cerebral vascular accident) Mother CVA (cerebral vascular accident) - Tobacco History Second Hand Smoke Exposure: No Tobacco Use In Past 30 Days: No Smoking Status: Former smoker Tobacco Type: Cigarettes - Alcohol History How Often Do You Have a Drink Containing Alcohol: Monthly or less - Substance Use History Substance History: No History of Abuse - Travel History Recent Travel in the [place] Within the Last 8 Weeks: No Recent Travel Out of the Country Within the Last 8 Weeks: No - Immunization History Tetanus Immunization: Unsure Hx Influenza Vaccine This Season: Yes Medications and Allergies Active Medications: Active Medications Al Hydroxide/Mg Hydroxide (Milk Of Magnsusan Liq) 30 ml PO Q12H PRN PRN Reason: Mild Constipation Amlodipine Besylate (Norvasc) 5 mg PO BID [facility] Aspirin (Aspirin Chew) 81 mg PO DAILY JENNIFER Bisacodyl (Dulcolax Supp) 10 mg RECTAL DAILY PRN PRN Reason: SEVERE CONSITIPATION Carvedilol (Coreg) 12.5 mg PO BID [facility] Sodium Chloride (Ns Inj) 1,000 mls @ 45 mls/hr IV.CONT .[id number] JENNIFER Lactulose (Lactulose Liq) 30 ml PO DAILY PRN PRN Reason: SEVERE CONSITIPATION Morphine Sulfate (Morphine Inj) 2 mg IV.PUSH Q3H PRN PRN Reason: pain 1 to 10 Pravastatin Sodium (Pravachol) 20 mg PO DAILY JENNIFER Sennosides (Senokot) 17.2 mg PO Q12H PRN PRN Reason: Moderate Constipation Sodium Chloride (Ns Flush) 2 ml IV.FLUSH UNSCH PRN PRN Reason: FLUSH AFTER USING IV ACCESS Allergies Allergy/AdvReac Type Severity Reaction Status Date / Time diatrizoate meglumine Allergy Severe Shortness Verified 01/03/18 18:32 of Breath gadobenic acid Allergy Severe Shortness Verified 01/03/18 18:32 of Breath gadodiamide Allergy Severe Shortness Verified 01/03/18 18:32 of Breath gadoteridol Allergy Severe Shortness Verified 01/03/18 18:32 of Breath iodine Allergy Severe Shortness Verified 01/03/18 18:32 of Breath iodixanol Allergy Severe Shortness Verified 01/03/18 18:32 of Breath iohexol Allergy Severe Shortness Unverified 01/03/18 18:32 of Breath potassium iodide Allergy Severe Shortness Verified 01/03/18 18:32 of Breath povidone-iodine Allergy Severe Shortness Verified 01/03/18 18:32 of Breath sodium iodide Allergy Severe Shortness Verified 01/03/18 18:32 of Breath sodium iodide Allergy Severe Shortness Unverified 04/03/17 06:25 of Breath adhesive Allergy Intermediate SKIN Unverified 04/03/17 06:25 IRRITATION Home Medications Medication Instructions Recorded Confirmed Type Aspir-Low 81 PO 01/03/18 History amlodipine 5 mg PO BID 01/03/18 01/03/18 History calcitonin (salmon) 1 spray INTRANASAL (ALT) DAILY 01/03/18 01/03/18 History carvedilol 12.5 mg PO BID 01/03/18 01/03/18 History potassium chloride 10 meq PO DAILY 01/03/18 History pravastatin 20 mg PO DAILY 01/03/18 01/03/18 History Exam Vital signs: Vital Signs 01/03/18 18:28 01/03/18 19:10 01/03/18 22:37 Temperature 97.8 F Pulse Rate 78 71 75 Respiratory Rate 16 18 18 Blood Pressure 152/79 H 157/90 H 153/85 H Pulse Oximetry 95 97 97 01/04/18 00:04 Temperature Pulse Rate 68 Respiratory Rate 17 Blood Pressure 150/80 H Pulse Oximetry 96 Intake & Output 01/03/18 01/03/18 01/04/18 06:59 18:59 06:59 Intake Total 250 / 250 Output Total 650 / 650 Balance -400 / -400 Weight 70 kg Intake: Oral 0 / 0 Pre-hospital ED Only 250 / 250 Output: Urine Amount (Catheter) 650 / 650 Indwelling Urethral Catheter 650 / 650 Other: # Voids 2 Narrative: GENERAL: This is a well-nourished, well-developed patient, in no apparent distress. SKIN: Bruised right hip EYES: Pupils equal round and reactive, no scleral edema or drainage CARDIOVASCULAR: Regular rate and rhythm without murmurs, gallops, or rubs. RESPIRATORY: Clear to auscultation. Breath sounds equal bilaterally. No wheezes , rales, or rhonchi. GASTROINTESTINAL: Abdomen soft, non-tender, nondistended. Normal active bowel sounds MUSCULOSKELETAL: Extremities without clubbing, cyanosis, or edema. NEURO: Alert & Oriented x4 to person, place, time, situation. Limited range of motion with right lower extremity. Results - Labs CBC & Chem 7: 01/03/18 22:46 01/03/18 22:46 Labs: Short CBC 01/03/18 Range/Units 22:46 WBC 12.3 H (4.0-11.0) th/mm3 Hgb 15.2 (11.6-15.3) gm/dL Hct 44.5 (35.0-46.0) % Plt Count 221 (150-450) th/mm3 BMP 01/03/18 22:46 Sodium 142 Potassium 3.8 Chloride 106 Carbon Dioxide 27.5 BUN 16 Creatinine 0.91 Calcium 9.2 Liver Function 01/03/18 Range/Units 22:46 Total Bilirubin 0.9 (0.2-1.0) mg/dL AST 27 (15-37) U/L ALT 38 (10-53) U/L Alkaline Phosphatase 78 (45-117) U/L Albumin 3.9 (3.4-5.0) g/dL Urine 01/03/18 Range/Units 23:30 Urine Color Yellow (Yellw/Straw) Urine Clarity Clear (Clear) Urine pH 7.5 (5.0-8.5) Ur Specific [place] 1.010 (1.002-1.035) Urine Protein Negative (Neg-Trace) mg/dL Urine Glucose (UA) Negative (Negative) mg/dL - Imaging Impressions Femur X-Ray 01/03/18 19:49 CONCLUSION: No acute abnormality is seen. Hip X-Ray 01/03/18 19:49 CONCLUSION: No acute abnormality is seen. Hip CT 01/03/18 21:12 CONCLUSION: 1. Subcapital femoral neck fracture on the right. Chest X-Ray 01/03/18 22:34 CONCLUSION: Trace bibasilar atelectasis. Otherwise negative. Caprini VTE Risk Assessment Caprini VTE Risk Assessment: No/Low Risk (score <= 1) Caprini Risk Assessment Model: Point Value = 1 Point Value = 2 Point Value = 3 Point Value = 5 Age 41-60 Minor surgery BMI > 25 kg/m2 Swollen legs Varicose veins or History of unexplained or recurrent spontaneous Oral contraceptives or hormone replacement Sepsis (< 1 month) Serious lung disease, including pneumonia (< 1 month) Abnormal pulmonary function Acute myocardial infarction Congestive heart failure (< 1 month) History of inflammatory bowel disease Medical patient at bed rest Age 61-74 Arthroscopic surgery Major open surgery (> 45 min) Laparoscopic surgery (> 45 min) Malignancy Confined to bed (> 72 hours) Immobilizing plaster cast Central venous access Age >= 75 History of VTE Family history of VTE Factor V Leiden Prothrombin [id number] Lupus anticoagulant Anticardiolipin antibodies Elevated serum homocysteine Heparin-induced thrombocytopenia Other congenital or acquired thrombophilia Stroke (< 1 month) Elective arthroplasty Hip, pelvis, or leg fracture Acute spinal cord injury (< 1 month) Prophylaxis Regimen: Total Risk Factor Score Risk Level Prophylaxis Regimen 0-1 Low Early ambulation 2 Moderate Order ONE of the following: *Sequential Compression Device (SCD) *Heparin 5000 units SQ BID 3-4 Higher Order ONE of the following medications: *Heparin 5000 units SQ TID *Enoxaparin/Lovenox 40 mg SQ daily (WT < 150 kg, CrCl > 30 mL/min) *Enoxaparin/Lovenox 30 mg SQ daily (WT < 150 kg, CrCl > 10-29 mL/min) *Enoxaparin/Lovenox 30 mg SQ BID (WT < 150 kg, CrCl > 30 mL/min) AND/OR *Sequential Compression Device (SCD) 5 or more Highest Order ONE of the following medications: *Heparin 5000 units SQ TID (Preferred with Epidurals) *Enoxaparin/Lovenox 40 mg SQ daily (WT < 150 kg, CrCl > 30 mL/min) *Enoxaparin/Lovenox 30 mg SQ daily (WT < 150 kg, CrCl > 10-29 mL/min) *Enoxaparin/Lovenox 30 mg SQ BID (WT < 150 kg, CrCl > 30 mL/min) AND *Sequential Compression Device (SCD) Assessment and Plan - Plan Right hip fracture Hip CT reviewed and shows a subcapital femoral neck fracture on the right. -Consult orthopedics for evaluation -N.p.o., IVF -Pain management with IV morphine Hypertension, chronic -Resume home medications monitor vitals Hyperlipidemia, chronic -Resume home medications -Cardiac diet when no longer npo DVT prophylaxis: SCDs, hold chemical until evaluated by ortho Discussed Condition With: Patient and RN
[2018-01-04] MEDS: Sod Chloride 0.9% Inj 1,000 ML IV.CONT SCH ×2 (05:43→22:11)
[2018-01-04 07:08] LABS: Baso # (Auto) 0.1 th/mm3 (0.0-0.2); Baso % (Auto) 0.9 % (0.0-2.0); Eos # (Auto) 0.6 th/mm3 (0.0-0.4); Eos % (Auto) 6.8 % (0.0-4.0); Hematocrit 40.7 % (35.0-46.0); Hemoglobin 13.9 gm/dL (11.6-15.3); Lymph # (Auto) 1.3 th/mm3 (1.0-4.8); Lymph % (Auto) 15.4 % (9.0-44.0); Mean Corpuscular HGB Conc 34.2 % (32.0-36.0); Mean Corpuscular Hemoglobin 30.9 pg (27.0-34.0); Mean Corpuscular Volume 90.4 fL (80.0-100.0); Mean Platelet Volume 8.3 fL (7.0-11.0); Mono # (Auto) 0.6 th/mm3 (0.0-0.9); Mono % (Auto) 6.7 % (0.0-8.0); Neut % (Auto) 70.2 % (16.0-70.0); Platelet Count 187 th/mm3 (150-450); Red Cell Distribution Width 14.4 % (11.6-17.2); White Blood Count 8.5 th/mm3 (4.0-11.0)
[2018-01-04 07:22] LABS: Alanine Aminotransferase 33 U/L (10-53); Albumin 3.5 g/dL (3.4-5.0); Anion Gap 6 meq/L (5-15); Aspartate Aminotransferase 20 U/L (15-37); Blood Urea Nitrogen 13 mg/dL (7-18); Calcium 8.5 mg/dL (8.5-10.1); Carbon Dioxide 31.4 meq/L (21.0-32.0); Chloride 107 meq/L (98-107); Glomerular Filtration Rate 61 mL/min (>89); Glucose,Random 89 mg/dL (74-106); Potassium 3.8 meq/L (3.5-5.1); Sodium 144 meq/L (136-145)
[2018-01-04 07:24] LABS: Alkaline Phosphatase 71 U/L (45-117); Total Protein 6.8 g/dL (6.4-8.2)
[2018-01-04] MEDS: amLODIPine 5 MG Tablet PO SCH ×2 (08:45→22:10)
[2018-01-04] MEDS: Carvedilol 12.5 MG Tablet PO SCH ×2 (08:45→22:10)
--- NOTE | 2018-01-04 09:18 | P.PNIM ---
Subjective Interval history: f/u; hip fracture in no acute distress. pain is controlled. no other complaints. Physical Exam Vital signs: Vital Signs 01/03/18 18:28 01/03/18 19:10 01/03/18 22:37 Temperature 97.8 F Pulse Rate 78 71 75 Respiratory Rate 16 18 18 Blood Pressure 152/79 H 157/90 H 153/85 H Pulse Oximetry 95 97 97 01/04/18 00:04 01/04/18 04:00 01/04/18 08:00 Temperature 97.3 F L 98.2 F Pulse Rate 68 67 67 Respiratory Rate 17 18 17 Blood Pressure 150/80 H 152/70 H 140/63 Pulse Oximetry 96 94 L 93 L Intake & Output 01/03/18 01/04/18 01/04/18 18:59 06:59 18:59 Intake Total 250 / 250 Output Total 850 / 850 Balance -600 / -600 Weight 70 kg 70 kg Intake: Oral 0 / 0 Pre-hospital ED Only 250 / 250 Output: Urine 200 / 200 Urine Amount (Catheter) 650 / 650 Indwelling Urethral Catheter 650 / 650 Other: # Voids 2 - Constitutional no acute distress - Routine Respiratory Exam Present: CTA bilaterally - Routine Cardiovascular Exam Present: RRR - Routine Abdominal Exam Present: soft - Routine Extremities Exam Comments: no pedal edema. - Routine Neurological Exam Present: alert, oriented X3 - Urinary Catheter Management Indwelling Urethral Catheter Cath placed during this visit: yes Reason for continuing: Other continuation reason Insertion date: 01/03/18 Insertion time: 23:30 Results - Labs CBC & Chem 7: 01/04/18 06:24 01/04/18 06:24 Laboratory Results - last 24 hr 01/03/18 01/03/18 01/03/18 22:46 22:46 22:46 CBC w Diff Auto diff final WBC 12.3 H RBC 4.98 Hgb 15.2 Hct 44.5 MCV 89.3 MCH 30.5 MCHC 34.2 RDW 14.1 Plt Count 221 MPV 9.3 Neut % (Auto) 81.1 H Lymph % (Auto) 10.6 [place] % (Auto) 6.3 Eos % (Auto) 1.9 Baso % (Auto) 0.1 Neut # (Auto) 10.0 H Lymph # (Auto) 1.3 [place] # (Auto) 0.8 Eos # (Auto) 0.2 Baso # (Auto) 0.0 WBC Differential . Differential Comment . PT 10.8 INR 1.1 APTT 25.6 Sodium 142 Potassium 3.8 Chloride 106 Carbon Dioxide 27.5 Anion Gap 9 BUN 16 Creatinine 0.91 Estimated GFR 58 L Random Glucose 117 H Calcium 9.2 Total Bilirubin 0.9 AST 27 ALT 38 Alkaline Phosphatase 78 Total Protein 7.2 Albumin 3.9 Urine Color Urine Clarity Urine pH Ur Specific [place] Urine Protein Urine Glucose (UA) Urine Ketones Urine Occult Blood Urine Nitrate Urine Bilirubin Urine Urobilinogen Ur Leukocyte Esterase Ur Squamous Epith Cells Micro UA Comment Ur Microscopic Review Blood Type Blood Type Recheck Antibody Screen 01/03/18 01/03/18 01/04/18 22:46 23:30 06:24 CBC w Diff WBC 8.5 RBC 4.50 Hgb 13.9 Hct 40.7 MCV 90.4 MCH 30.9 MCHC 34.2 RDW 14.4 Plt Count 187 MPV 8.3 Neut % (Auto) 70.2 H Lymph % (Auto) 15.4 [place] % (Auto) 6.7 Eos % (Auto) 6.8 H Baso % (Auto) 0.9 Neut # (Auto) 6.0 Lymph # (Auto) 1.3 [place] # (Auto) 0.6 Eos # (Auto) 0.6 H Baso # (Auto) 0.1 WBC Differential . Differential Comment Auto diff final PT INR APTT Sodium Potassium Chloride Carbon Dioxide Anion Gap BUN Creatinine Estimated GFR Random Glucose Calcium Total Bilirubin AST ALT Alkaline Phosphatase Total Protein Albumin Urine Color Yellow Urine Clarity Clear Urine pH 7.5 Ur Specific [place] 1.010 Urine Protein Negative Urine Glucose (UA) Negative Urine Ketones Negative Urine Occult Blood Negative Urine Nitrate Negative Urine Bilirubin Negative Urine Urobilinogen 0.2 Ur Leukocyte Esterase Negative Ur Squamous Epith Cells 0-5 Micro UA Comment Culture not ind Ur Microscopic Review Microscopic reviewed Blood Type A Positive Blood Type Recheck Required Antibody Screen Negative 01/04/18 06:24 CBC w Diff WBC RBC Hgb Hct MCV MCH MCHC RDW Plt Count MPV Neut % (Auto) Lymph % (Auto) [place] % (Auto) Eos % (Auto) Baso % (Auto) Neut # (Auto) Lymph # (Auto) [place] # (Auto) Eos # (Auto) Baso # (Auto) WBC Differential Differential Comment PT INR APTT Sodium 144 Potassium 3.8 Chloride 107 Carbon Dioxide 31.4 Anion Gap 6 BUN 13 Creatinine 0.88 Estimated GFR 61 L Random Glucose 89 Calcium 8.5 Total Bilirubin 0.8 AST 20 ALT 33 Alkaline Phosphatase 71 Total Protein 6.8 Albumin 3.5 Urine Color Urine Clarity Urine pH Ur Specific [place] Urine Protein Urine Glucose (UA) Urine Ketones Urine Occult Blood Urine Nitrate Urine Bilirubin Urine Urobilinogen Ur Leukocyte Esterase Ur Squamous Epith Cells Micro UA Comment Ur Microscopic Review Blood Type Blood Type Recheck Antibody Screen - Imaging Impressions Femur X-Ray 01/03/18 19:49 CONCLUSION: No acute abnormality is seen. Hip X-Ray 01/03/18 19:49 CONCLUSION: No acute abnormality is seen. Hip CT 01/03/18 21:12 CONCLUSION: 1. Subcapital femoral neck fracture on the right. Chest X-Ray 01/03/18 22:34 CONCLUSION: Trace bibasilar atelectasis. Otherwise negative. Assessment and Plan - Plan Right hip fracture Hip CT reviewed and shows a subcapital femoral neck fracture on the right. -Consulted orthopedics for evaluation -N.p.o., IVF -Pain management with IV morphine Hypertension, chronic -Resumed home medications monitor vitals Hyperlipidemia, chronic -Resumed home medications -Cardiac diet when no longer npo DVT prophylaxis: SCDs, hold chemical until evaluated by ortho Discharge Planning: awaiting ortho evaluation.
--- NOTE | 2018-01-04 10:55 | ECG ---
Date Performed: 01/03/2018 Time Performed: 22:45:53 PTAGE: 87 years EKG: Normal Sinus rhythm Left Atrial Abnormality Right Bundle Branch Block with secondary ST-T changes Possible Left Ventricu lar Hypertrophy by limb voltage criteria ABNORMAL ECG NO PREVIOUS TRACING DOCTOR: Tyshawn Anderson Interpretating Date/Time 01/04/2018 10:54:53
[2018-01-04] MEDS ORDERED: fentaNYL Citrate Inj 250 MCG/5 ML Ampul ONE (13:24)
--- NOTE | 2018-01-04 15:48 | OTSOAPIP ---
TIME SESSION COMPLETED: AM TREATMENT TIME: 0 MINS. CHART REVIEWED. PATIENT IS AN 87 Y/O FEMALE S/P FALL WITH RIGHT HIP FRACTURE. IS PENDING ORTHO CONSULT. WILL AWAIT ORTHO CONSULT AND ACTIVITY ORDERS TO PROCEED WITH EVALUATION. Therapist: Sugey Tay Signature on file
[2018-01-04] MEDS ORDERED: Lidocaine PF 1% Inj 5 ML Syringe INFILTRATN ONE (16:00)
[2018-01-04] MEDS ORDERED: Temazepam 15 MG Capsule PO PRN (16:31)
[2018-01-04] MEDS ORDERED: Post-op Orders (for Pharmacy) OTHER STA (16:31)
--- NOTE | 2018-01-04 16:31 | P.CONOP ---
[facility] Orthopedics Consult Note - [facility] Consult date: 01/04/18 Consult reason: fracture Chief complaint: Rt Subcapital Femoral Neck Fx; H/o HTN/Dyslip/CAD Narrative: 87-year-old female with a history of hypertension anemia presented to the ED with complaints of right hip pain. Patient states she came home this afternoon and was walking in through the front door when the 2 dogs she was dog sitting for tried to get out and knocked her down. She states she is not landed on her right hip. States the pain is a throbbing, intermittent, 7/10, with no radiation or associated symptoms, worse with movement, better with pain medication. She denies any chest pain, shortness of breath, fever or chills. Review of Systems Constitutional: Denies anorexia Eyes: Denies blurry vision Ears, Nose, Mouth, and Throat: Denies difficulty swallowing Cardiovascular: Denies chest pain Respiratory: Denies chest congestion Gastrointestinal: Denies abdominal pain Musculoskeletal: Denies abnormal walking Neurologic: Denies behavioral changes PMFSH - History History Provided By: Patient - Medical History Medical History: Medical History (Last Reviewed 01/04/18 @ 09:22 by Sugey Tay) High cholesterol History of hypertension Osteoporosis - Surgical History Surgical History: Surgical History (Last Reviewed 01/04/18 @ 09:22 by Sugey Tay) Hx of coronary artery bypass surgery Hx of tonsillectomy - Family History Family History: Family History (Last Reviewed 01/04/18 @ 09:22 by Sugey Tay) Father CVA (cerebral vascular accident) Mother CVA (cerebral vascular accident) - Tobacco History Second Hand Smoke Exposure: No Tobacco Use In Past 30 Days: No Smoking Status: Former smoker Tobacco Type: Cigarettes - Alcohol History How Often Do You Have a Drink Containing Alcohol: Monthly or less - Substance Use History Substance History: No History of Abuse - Travel History Recent Travel in the [place] Within the Last 8 Weeks: No Recent Travel Out of the Country Within the Last 8 Weeks: No - Immunization History Tetanus Immunization: Unsure Hx Influenza Vaccine This Season: Yes Medications and Allergies Active Medications: Active Medications Al Hydroxide/Mg Hydroxide (Milk Of Magnsusan Liq) 30 ml PO Q12H PRN PRN Reason: Mild Constipation Amlodipine Besylate (Norvasc) 5 mg PO BID JENN[facility]ER Last Admin: 01/04/18 08:45 Dose: 5 mg Aspirin (Aspirin Chew) 81 mg PO DAILY [facility] Last Admin: 01/04/18 08:45 Dose: 81 mg Bisacodyl (Dulcolax Supp) 10 mg RECTAL DAILY PRN PRN Reason: SEVERE CONSITIPATION Carvedilol (Coreg) 12.5 mg PO BID [facility] Last Admin: 01/04/18 08:45 Dose: 12.5 mg Sodium Chloride (Ns Inj) 1,000 mls @ 45 mls/hr IV.CONT .[id number] [facility] Last Admin: 01/04/18 05:43 Dose: 45 mls/hr Lactulose (Lactulose Liq) 30 ml PO DAILY PRN PRN Reason: SEVERE CONSITIPATION Morphine Sulfate (Morphine Inj) 2 mg IV.PUSH Q3H PRN PRN Reason: pain 1 to 10 Last Admin: 01/04/18 13:23 Dose: 2 mg Ondansetron HCl (Zofran Inj) 4 mg IV.PUSH Q6H PRN PRN Reason: NAUSEA Last Admin: 01/04/18 13:28 Dose: 4 mg Pravastatin Sodium (Pravachol) 20 mg PO DAILY [facility] Last Admin: 01/04/18 08:45 Dose: 20 mg Sennosides (Senokot) 17.2 mg PO Q12H PRN PRN Reason: Moderate Constipation Sodium Chloride (Ns Flush) 2 ml IV.FLUSH UNSCH PRN PRN Reason: FLUSH AFTER USING IV ACCESS Allergies Allergy/AdvReac Type Severity Reaction Status Date / Time diatrizoate meglumine Allergy Severe Shortness Verified 01/03/18 18:32 of Breath gadobenic acid Allergy Severe Shortness Verified 01/03/18 18:32 of Breath gadodiamide Allergy Severe Shortness Verified 01/03/18 18:32 of Breath gadoteridol Allergy Severe Shortness Verified 01/03/18 18:32 of Breath iodine Allergy Severe Shortness Verified 01/03/18 18:32 of Breath iodixanol Allergy Severe Shortness Verified 01/03/18 18:32 of Breath iohexol Allergy Severe Shortness Unverified 01/03/18 18:32 of Breath potassium iodide Allergy Severe Shortness Verified 01/03/18 18:32 of Breath povidone-iodine Allergy Severe Shortness Verified 01/03/18 18:32 of Breath sodium iodide Allergy Severe Shortness Verified 01/03/18 18:32 of Breath sodium iodide Allergy Severe Shortness Unverified 04/03/17 06:25 of Breath adhesive Allergy Intermediate SKIN Unverified 04/03/17 06:25 IRRITATION Home Medications Medication Instructions Recorded Confirmed Type Aspir-Low 81 PO 01/03/18 History amlodipine 5 mg PO BID 01/03/18 01/03/18 History calcitonin (salmon) 1 spray INTRANASAL (ALT) DAILY 01/03/18 01/03/18 History carvedilol 12.5 mg PO BID 01/03/18 01/03/18 History potassium chloride 10 meq PO DAILY 01/03/18 History pravastatin 20 mg PO DAILY 01/03/18 01/03/18 History Exam Vital signs: Vital Signs 01/03/18 18:28 01/03/18 19:10 01/03/18 22:37 Temperature 97.8 F Pulse Rate 78 71 75 Respiratory Rate 16 18 18 Blood Pressure 152/79 H 157/90 H 153/85 H Pulse Oximetry 95 97 97 01/04/18 00:04 01/04/18 04:00 01/04/18 08:00 Temperature 97.3 F L 98.2 F Pulse Rate 68 67 67 Respiratory Rate 17 18 17 Blood Pressure 150/80 H 152/70 H 140/63 Pulse Oximetry 96 94 L 93 L 01/04/18 10:59 01/04/18 12:00 Temperature 98.5 F Pulse Rate 69 Respiratory Rate 17 Blood Pressure 121/58 L Pulse Oximetry 94 L 94 L Intake & Output 01/03/18 01/04/18 01/04/18 18:59 06:59 18:59 Intake Total 250 / 250 Output Total 850 / 850 Balance -600 / -600 Weight 70 kg 70 kg Intake: Oral 0 / 0 Pre-hospital ED Only 250 / 250 Output: Urine 200 / 200 Urine Amount (Catheter) 650 / 650 Indwelling Urethral Catheter 650 / 650 Other: # Voids 2 Narrative: GENERAL: This is a well-nourished, well-developed patient, in no apparent distress. SKIN: Bruised right hip EYES: Pupils equal round and reactive, no scleral edema or drainage CARDIOVASCULAR: Regular rate and rhythm without murmurs, gallops, or rubs. RESPIRATORY: Clear to auscultation. Breath sounds equal bilaterally. No wheezes , rales, or rhonchi. GASTROINTESTINAL: Abdomen soft, non-tender, nondistended. Normal active bowel sounds MUSCULOSKELETAL: Extremities without clubbing, cyanosis, or edema. Right hip moderate tenderness to palpation. No significant swelling. Mild pain with range of motion. Dorsalis pedis 2+. Sensation normal. NEURO: Alert & Oriented x4 to person, place, time, situation. Limited range of motion with right lower extremity. Results - Labs Result Diagrams: 01/04/18 06:24 01/04/18 06:24 Labs: Laboratory Results - last 24 hr 01/03/18 01/03/18 01/03/18 22:46 22:46 22:46 CBC w Diff Auto diff final WBC 12.3 H RBC 4.98 Hgb 15.2 Hct 44.5 MCV 89.3 MCH 30.5 MCHC 34.2 RDW 14.1 Plt Count 221 MPV 9.3 Neut % (Auto) 81.1 H Lymph % (Auto) 10.6 Dare % (Auto) 6.3 Eos % (Auto) 1.9 Baso % (Auto) 0.1 Neut # (Auto) 10.0 H Lymph # (Auto) 1.3 Dare # (Auto) 0.8 Eos # (Auto) 0.2 Baso # (Auto) 0.0 WBC Differential . Differential Comment . PT 10.8 INR 1.1 APTT 25.6 Sodium 142 Potassium 3.8 Chloride 106 Carbon Dioxide 27.5 Anion Gap 9 BUN 16 Creatinine 0.91 Estimated GFR 58 L POC Glucose Random Glucose 117 H Calcium 9.2 Total Bilirubin 0.9 AST 27 ALT 38 Alkaline Phosphatase 78 Total Protein 7.2 Albumin 3.9 Urine Color Urine Clarity Urine pH Ur Specific [place] Urine Protein Urine Glucose (UA) Urine Ketones Urine Occult Blood Urine Nitrate Urine Bilirubin Urine Urobilinogen Ur Leukocyte Esterase Ur Squamous Epith Cells Micro UA Comment Ur Microscopic Review Blood Type Blood Type Recheck Antibody Screen 01/03/18 01/03/18 01/04/18 22:46 23:30 06:24 CBC w Diff WBC 8.5 RBC 4.50 Hgb 13.9 Hct 40.7 MCV 90.4 MCH 30.9 MCHC 34.2 RDW 14.4 Plt Count 187 MPV 8.3 Neut % (Auto) 70.2 H Lymph % (Auto) 15.4 Dare % (Auto) 6.7 Eos % (Auto) 6.8 H Baso % (Auto) 0.9 Neut # (Auto) 6.0 Lymph # (Auto) 1.3 Dare # (Auto) 0.6 Eos # (Auto) 0.6 H Baso # (Auto) 0.1 WBC Differential . Differential Comment Auto diff final PT INR APTT Sodium Potassium Chloride Carbon Dioxide Anion Gap BUN Creatinine Estimated GFR POC Glucose Random Glucose Calcium Total Bilirubin AST ALT Alkaline Phosphatase Total Protein Albumin Urine Color Yellow Urine Clarity Clear Urine pH 7.5 Ur Specific [place] 1.010 Urine Protein Negative Urine Glucose (UA) Negative Urine Ketones Negative Urine Occult Blood Negative Urine Nitrate Negative Urine Bilirubin Negative Urine Urobilinogen 0.2 Ur Leukocyte Esterase Negative Ur Squamous Epith Cells 0-5 Micro UA Comment Culture not ind Ur Microscopic Review Microscopic reviewed Blood Type A Positive Blood Type Recheck Required Antibody Screen Negative 01/04/18 01/04/18 06:24 13:56 CBC w Diff WBC RBC Hgb Hct MCV MCH MCHC RDW Plt Count MPV Neut % (Auto) Lymph % (Auto) Dare % (Auto) Eos % (Auto) Baso % (Auto) Neut # (Auto) Lymph # (Auto) Dare # (Auto) Eos # (Auto) Baso # (Auto) WBC Differential Differential Comment PT INR APTT Sodium 144 Potassium 3.8 Chloride 107 Carbon Dioxide 31.4 Anion Gap 6 BUN 13 Creatinine 0.88 Estimated GFR 61 L POC Glucose 91 Random Glucose 89 Calcium 8.5 Total Bilirubin 0.8 AST 20 ALT 33 Alkaline Phosphatase 71 Total Protein 6.8 Albumin 3.5 Urine Color Urine Clarity Urine pH Ur Specific [place] Urine Protein Urine Glucose (UA) Urine Ketones Urine Occult Blood Urine Nitrate Urine Bilirubin Urine Urobilinogen Ur Leukocyte Esterase Ur Squamous Epith Cells Micro UA Comment Ur Microscopic Review Blood Type Blood Type Recheck Antibody Screen - Diagnostic results Imaging: Impressions Femur X-Ray 01/03/18 19:49 CONCLUSION: No acute abnormality is seen. Hip X-Ray 01/03/18 19:49 CONCLUSION: No acute abnormality is seen. Hip CT 01/03/18 21:12 CONCLUSION: 1. Subcapital femoral neck fracture on the right. I reviewed the x-rays and CT and review of the radiologist interpretation shows evidence of a nondisplaced subcapital right femoral neck fracture Chest X-Ray 01/03/18 22:34 CONCLUSION: Trace bibasilar atelectasis. Otherwise negative. Assessment and Plan - Assessment and Plan Fracture right femoral neck, subcapital, nondisplaced. PLAN: Surgery: Open treatment internal fixation right femoral neck fracture with cannulated screws. Consent: There are risks of this injury and surgery including infection, bleeding, loss of motion, continued pain, need for further surgery, neurologic or vascular injury, avascular necrosis. The patient understands these issues and wishes to proceed forward with surgery as outlined above
[2018-01-04] MEDS ORDERED: Neostigmine Inj 5 MG/5 ML Syringe IV.PUSH ONE (17:00)
[2018-01-04] MEDS ORDERED: Ketorolac Inj 30 MG/ML (IVP) Vial IV.PUSH ONE (17:00)
[2018-01-04] MEDS ORDERED: Glycopyrrolate Inj 1 MG/5 ML Vial IV.PUSH ONE (17:00)
--- NOTE | 2018-01-04 17:04 | P.OP ---
- Preoperative Diagnosis (1) Hip fracture, right Preoperative Diagnosis: Right hip subcapital femoral neck fracture Postoperative Diagnosis: Same Date of procedure: 01/04/18 Procedure: Open treatment internal fixation right hip fracture with multiple screws, cannulated Anesthesia: GETA Surgeon: Ge Marshall MD Laborer Stores: FE Valles Operation and Findings: EBL: 50 cc INDICATION: This patient is an 87-year-old female who fell yesterday sustaining a nondisplaced right hip subcapital femoral neck fracture. She presents for open treatment and internal fixation NOTE: Cathy Valles PA-C was present for the entire surgical procedure as my banking assistant. In my medical opinion her skill and care was necessary for proper management of this patient PROCEDURE: The patient was brought to the operating room and anesthetized in the supine position. He was placed on the fracture table with the right leg held extended. The opposite leg was in the well leg odonnell. The hip fracture was reduced anatomically. The hip and leg was scrubbed with alcohol followed by Hibiclens followed by ChloraPrep. A timeout was done and antibiotics were given within 1 hour time window. A longitudinal incision was made over the lateral aspect of the hip. This is carried down through skin and subcutaneous tissue. The fascia was opened longitudinally. Deep retractors allowed good visualization. Multiple guide pins were placed across the proximal femur across the neck of the femur. These were placed within the proper position in a parallel fashion into the femoral head. Overall alignment was satisfactory. Reduction was near anatomic. Each pin was measured and then the outer cortex drilled. Proper length 7.3mm Synthes screws were advanced across the cannulated device and into the femoral head. Each screw had good position. Intraoperative x-rays were obtained. Alignment was satisfactory. No complication was noted. The wound was irrigated copiously. Hemostasis was controlled. The fascia was closed with interrupted Vicryl suture, subcutaneous tissue 2-0 Vicryl suture, skin with running intradermal 3-0 Vicryl followed by Steri-Strips and benzoin. A sterile dressing was applied The patient was awakened and taken to the recovery room in satisfactory condition. FINDINGS: There was no evidence of significant displacement of the femoral neck fracture. Screw position was felt to be very satisfactory. No complication was noted
--- NOTE | 2018-01-04 17:23 | XR ---
EXAM DATE: 01/04/2018 5:20 PM EDT AGE/SEX: 87 years / Female INDICATIONS: ORIF of the right hip done in the operating room. CLINICAL DATA: This is the patient's initial encounter. Patient reports that signs and symptoms have been present for 1 day and indicates a pain score of Nonresponsive. MEDICAL/SURGICAL HISTORY: None. None. COMPARISON: No prior exams available for comparison. FINDINGS: Status post placement of 3 pins in the proximal femur. There appears to be good alignment and positio n of the bony structures. There is good alignment at the hip joint. CONCLUSION: Good position and alignment on this postoperative study. Electronically signed by: Marcelo Hercules MD 01/04/2018 5:22 PM EDT
[2018-01-04] MEDS ORDERED: fentaNYL Citrate Inj 100 MCG/2 ML Ampul ONE (17:43)
[2018-01-04] MEDS: Multivitamin/Minerals Therapeutic Tablet PO SCH (22:10)
[2018-01-05] MEDS: Enoxaparin Inj 30 MG/0.3 ML Syringe SQ SCH (06:01)
[2018-01-05] MEDS: Morphine Inj 4 MG/ML Vial IV.PUSH PRN (07:56)
[2018-01-05] MEDS: Multivitamin/Minerals Therapeutic Tablet PO SCH ×2 (08:02→21:52)
[2018-01-05] MEDS: Carvedilol 12.5 MG Tablet PO SCH ×2 (08:02→21:52)
[2018-01-05] MEDS: amLODIPine 5 MG Tablet PO SCH ×2 (08:02→21:52)
--- NOTE | 2018-01-05 08:20 | P.PNOP ---
Subjective Interval history: Doing well. Sitting at bedside. Physical therapist and daughter at bedside Physical Exam Vital signs: Vital Signs 01/04/18 10:59 01/04/18 12:00 01/04/18 17:30 Temperature 98.5 F 97.5 F L Pulse Rate 69 72 Respiratory Rate 17 14 Blood Pressure 121/58 L 149/67 H Pulse Oximetry 94 L 94 L 95 01/04/18 17:45 01/04/18 18:00 01/04/18 18:15 Temperature 97.6 F Pulse Rate 69 64 65 Respiratory Rate 15 16 16 Blood Pressure 156/61 H 150/71 H 151/72 H Pulse Oximetry 98 94 L 95 01/04/18 18:43 01/04/18 20:00 01/05/18 00:00 Temperature 97.2 F L 98.3 F 97.7 F Pulse Rate 63 88 65 Respiratory Rate 18 18 18 Blood Pressure 145/67 H 82/49 L 133/64 Pulse Oximetry 95 96 91 L 01/05/18 04:00 Temperature 97.6 F Pulse Rate 61 Respiratory Rate 18 Blood Pressure 82/52 L Pulse Oximetry 96 Intake & Output 01/04/18 01/05/18 01/05/18 18:59 06:59 18:59 Intake Total 1000 / 1000 1200 / 1200 Output Total 200 / 200 Balance 800 / 800 1200 / 1200 Weight 70 kg Intake: IV 1200 / 1200 NS Inj 1,000 ML @ 45 mls/hr IV. 1000 / 1000 CONT .[id number] [facility] Rx#: [id number] Ancef Inj 1,000 MG In NS Inj 200 / 200 100 ML @ 200 mls/hr IV.SIG Q6H JENNIFER Rx#:[id number] Anesthesia Amount 1000 / 1000 Output: Estimated Blood Loss 50 / 50 Urine Amount (Catheter) 150 / 150 Indwelling Urethral Catheter 150 / 150 Other: # Voids 1 Narrative: Dressing dry. No abnormal swelling. Neuro exam normal. Mild pain. No calf tenderness - Urinary Catheter Management Indwelling Urethral Catheter Cath placed during this visit: yes Reason for continuing: Acute urinary retention Insertion date: 01/03/18 Insertion time: 23:30 Results - Labs CBC & Chem 7: 01/04/18 06:24 01/04/18 06:24 Laboratory Results - last 24 hr 01/04/18 13:56 POC Glucose 91 - Imaging Impressions Hip X-Ray 01/04/18 00:00 CONCLUSION: Good position and alignment on this postoperative study. Assessment and Plan - Assessment and Plan Fracture right femoral neck, subcapital, nondisplaced. Surgery: Open treatment internal fixation right femoral neck fracture with cannulated screws: POD #1. PLAN: Toe-touch weightbearing. Lovenox 30 mg daily for 25 days. [place] as needed for pain. Discharge to home versus SNF. Decision to be made today or tomorrow with physical therapy. No dressing change. Follow-up in 2 weeks. Stable orthopedically. Discharge meds per admitting service
--- NOTE | 2018-01-05 10:47 | P.PNIM ---
Subjective Interval history: f/u; hip fracture in no acute distress. pain is controlled. Physical Exam Vital signs: Vital Signs 01/04/18 10:59 01/04/18 12:00 01/04/18 17:30 Temperature 98.5 F 97.5 F L Pulse Rate 69 72 Respiratory Rate 17 14 Blood Pressure 121/58 L 149/67 H Pulse Oximetry 94 L 94 L 95 01/04/18 17:45 01/04/18 18:00 01/04/18 18:15 Temperature 97.6 F Pulse Rate 69 64 65 Respiratory Rate 15 16 16 Blood Pressure 156/61 H 150/71 H 151/72 H Pulse Oximetry 98 94 L 95 01/04/18 18:43 01/04/18 20:00 01/05/18 00:00 Temperature 97.2 F L 98.3 F 97.7 F Pulse Rate 63 88 65 Respiratory Rate 18 18 18 Blood Pressure 145/67 H 82/49 L 133/64 Pulse Oximetry 95 96 91 L 01/05/18 04:00 01/05/18 08:00 Temperature 97.6 F 98.4 F Pulse Rate 61 64 Respiratory Rate 18 17 Blood Pressure 82/52 L 127/59 L Pulse Oximetry 96 93 L Intake & Output 01/04/18 01/05/18 01/05/18 18:59 06:59 18:59 Intake Total 1000 / 1000 1200 / 1200 Output Total 200 / 200 Balance 800 / 800 1200 / 1200 Weight 70 kg Intake: IV 1200 / 1200 NS Inj 1,000 ML @ 45 mls/hr IV. 1000 / 1000 CONT .[id number] [facility] Rx#: [id number] Ancef Inj 1,000 MG In NS Inj 200 / 200 100 ML @ 200 mls/hr IV.SIG Q6H [facility] Rx#:[id number] Anesthesia Amount 1000 / 1000 Output: Estimated Blood Loss 50 / 50 Urine Amount (Catheter) 150 / 150 Indwelling Urethral Catheter 150 / 150 Other: # Voids 1 - Constitutional no acute distress - Routine Respiratory Exam Present: CTA bilaterally - Routine Cardiovascular Exam Present: RRR - Routine Abdominal Exam Present: soft - Routine Extremities Exam Comments: no pedal edema. - Routine Neurological Exam Present: alert, oriented X3 - Urinary Catheter Management Indwelling Urethral Catheter Cath placed during this visit: yes Reason for continuing: Acute urinary retention Insertion date: 01/03/18 Insertion time: 23:30 Results - Labs CBC & Chem 7: 01/04/18 06:24 01/04/18 06:24 Laboratory Results - last 24 hr 01/04/18 13:56 POC Glucose 91 - Imaging Impressions Hip X-Ray 01/04/18 00:00 CONCLUSION: Good position and alignment on this postoperative study. Assessment and Plan - Plan Right hip fracture Hip CT reviewed and shows a subcapital femoral neck fracture on the right. -s/p ORIF -continue pain control -PT consulted. Hypertension, chronic -Resumed home medications monitor vitals Hyperlipidemia, chronic -Resumed home medications -Cardiac diet DVT prophylaxis: subq Lovenox Discharge Planning: dc within the next 24 hrs- pending PT evaluation.
[2018-01-05 12:07] LABS: Hematocrit 40.8 % (35.0-46.0); Hemoglobin 13.9 gm/dL (11.6-15.3)
--- NOTE | 2018-01-05 14:10 | P.DS ---
Date of admission: 01/03/18 22:57 Primary care physician: UNKNOWN Brief History from admission: 87-year-old female with a history of hypertension anemia presented to the ED with complaints of right hip pain. Patient states she came home this afternoon and was walking in through the front door when the 2 dogs she was dog sitting for tried to get out and knocked her down. She states she is not landed on her right hip. States the pain is a throbbing, intermittent, 7/10, with no radiation or associated symptoms, worse with movement, better with pain medication. She denies any chest pain, shortness of breath, fever or chills. DS: Medications - Discharge Medications Prescriptions: hydrocodone-acetaminophen 1 tab PO Q4H PRN #10 tab PRN Reason: acute pain DS: Summary Hospital Course: patient was admitted with right femoral neck fracture. ortho was consulted and she underwent ORIF. course in the hospital was otherwise uneventful. pain is controlled and H/H post-op remained stable. - Time Spent with Patient Total time spent providing and/or coordinating discharge services: Less than 30 minutes Exam Vital signs: Vital Signs 01/04/18 17:30 01/04/18 17:45 01/04/18 18:00 Temperature 97.5 F L Pulse Rate 72 69 64 Respiratory Rate 14 15 16 Blood Pressure 149/67 H 156/61 H 150/71 H Pulse Oximetry 95 98 94 L 01/04/18 18:15 01/04/18 18:43 01/04/18 20:00 Temperature 97.6 F 97.2 F L 98.3 F Pulse Rate 65 63 88 Respiratory Rate 16 18 18 Blood Pressure 151/72 H 145/67 H 82/49 L Pulse Oximetry 95 95 96 01/05/18 00:00 01/05/18 04:00 01/05/18 08:00 Temperature 97.7 F 97.6 F 98.4 F Pulse Rate 65 61 64 Respiratory Rate 18 18 19 Blood Pressure 133/64 82/52 L 127/59 L Pulse Oximetry 91 L 96 93 L 01/05/18 12:00 Temperature 97.7 F Pulse Rate 59 L Respiratory Rate 17 Blood Pressure 114/58 L Pulse Oximetry 98 Intake & Output 01/04/18 01/05/18 01/05/18 18:59 06:59 18:59 Intake Total 1000 / 1000 1200 / 1200 100 / 100 Output Total 200 / 200 Balance 800 / 800 1200 / 1200 100 / 100 Weight 70 kg Intake: IV 1200 / 1200 100 / 100 NS Inj 1,000 ML @ 45 mls/hr IV. 1000 / 1000 CONT .[id number] [facility] Rx#: [id number] Ancef Inj 1,000 MG In NS Inj 200 / 200 100 / 100 100 ML @ 200 mls/hr IV.SIG Q6H [facility] Rx#:[id number] Anesthesia Amount 1000 / 1000 Output: Estimated Blood Loss 50 / 50 Urine Amount (Catheter) 150 / 150 Indwelling Urethral Catheter 150 / 150 Other: # Voids 1 - Constitutional no acute distress - Routine Respiratory Exam Present: CTA bilaterally - Routine Cardiovascular Exam Present: RRR - Routine Abdominal Exam Present: soft - Routine Extremities Exam Comments: no pedal edema. - Routine Neurological Exam Present: alert, oriented X3 Results Procedures completed during hospitalization: ORIF right femoral neck fracture. Labs on day of discharge: Labs from last 24 hours 01/05/18 11:36 Hgb 13.9 Hct 40.8 - Impressions ITS Impressions Femur X-Ray 01/03/18 19:49 CONCLUSION: No acute abnormality is seen. Hip CT 01/03/18 21:12 CONCLUSION: 1. Subcapital femoral neck fracture on the right. Chest X-Ray 01/03/18 22:34 CONCLUSION: Trace bibasilar atelectasis. Otherwise negative. Hip X-Ray 01/04/18 00:00 CONCLUSION: Good position and alignment on this postoperative study. Discharge Plan - Discharge Condition Condition: Stable - Physicians Team Primary Care Provider: UNKNOWN, Attending Provider: Sophie Smith Other Providers: Ge Marshall MD ; [employer] ; [facility],Ag[facility]
[2018-01-05] MEDS: Sod Chloride 0.9% Inj 1,000 ML IV.CONT SCH (21:53)
[2018-01-06] MEDS: Enoxaparin Inj 30 MG/0.3 ML Syringe SQ SCH (06:02)
[2018-01-06] MEDS: amLODIPine 5 MG Tablet PO SCH (08:54)
[2018-01-06] MEDS: Carvedilol 12.5 MG Tablet PO SCH (08:54)
[2018-01-06] MEDS: Multivitamin/Minerals Therapeutic Tablet PO SCH (08:54)
--- NOTE | 2018-01-06 09:47 | P.PNIM ---
Subjective Interval history: f/u; hip fracture in no acute distress. pain seems to be controlled. no new complaints. Physical Exam Vital signs: Vital Signs 01/05/18 12:00 01/05/18 16:00 01/05/18 20:00 Temperature 97.7 F 97.5 F L 97.6 F Pulse Rate 59 L 56 L 56 L Respiratory Rate 17 18 21 Blood Pressure 114/58 L 147/70 H 151/66 H Pulse Oximetry 98 96 96 01/06/18 00:00 01/06/18 04:00 01/06/18 08:00 Temperature 97.8 F 97.8 F 97.1 F L Pulse Rate 61 58 L 59 L Respiratory Rate 16 16 18 Blood Pressure 149/68 H 144/69 H 159/76 H Pulse Oximetry 95 96 95 Intake & Output 01/05/18 01/06/18 01/06/18 18:59 06:59 18:59 Intake Total 100 / 100 1000 / 1000 Balance 100 / 100 1000 / 1000 Weight 70.2 kg Intake: IV 100 / 100 1000 / 1000 NS Inj 1,000 ML @ 45 mls/hr IV. 1000 / 1000 CONT .[id number] [facility] Rx#: [id number] Ancef Inj 1,000 MG In NS Inj 100 / 100 100 ML @ 200 mls/hr IV.SIG Q6H [facility] Rx#:[id number] Other: # Voids 1 - Constitutional no acute distress - Routine Respiratory Exam Present: CTA bilaterally - Routine Cardiovascular Exam Present: RRR - Routine Abdominal Exam Present: soft - Routine Extremities Exam Comments: no pedal edema. - Routine Neurological Exam Present: alert, oriented X3 - Urinary Catheter Management Indwelling Urethral Catheter Cath placed during this visit: yes Reason for continuing: Acute urinary retention Insertion date: 01/03/18 Insertion time: 23:30 Results - Labs CBC & Chem 7: 01/05/18 11:36 01/04/18 06:24 Laboratory Results - last 24 hr 01/05/18 11:36 Hgb 13.9 Hct 40.8 - Procedures ORIF right femoral neck fracture. Assessment and Plan - Plan Right hip fracture Hip CT reviewed and shows a subcapital femoral neck fracture on the right. -s/p ORIF -continue pain control -PT consulted. -stable per ortho. Hypertension, chronic -Resumed home medications monitor vitals Hyperlipidemia, chronic -Resumed home medications -Cardiac diet DVT prophylaxis: subq Lovenox Discharge Planning: dc to SNF when arrangements made. see med list. f/u; pcp and ortho. d/w the patient. E-Foarsce was reviewed.
[2018-01-06] MEDS: Morphine Inj 4 MG/ML Vial IV.PUSH PRN (13:44)
--- NOTE | 2018-01-06 14:52 | P.PNOP ---
Subjective Interval history: Open treatment internal fixation right femoral neck fracture with cannulated screws: POD #2 Pt states pain meds are not controlling all of pain. Family at bedside. Feels ready for d/c to rehab facility today. All questions were answered. Physical Exam Vital signs: Vital Signs 01/05/18 16:00 01/05/18 20:00 01/06/18 00:00 Temperature 97.5 F L 97.6 F 97.8 F Pulse Rate 56 L 56 L 61 Respiratory Rate 18 21 16 Blood Pressure 147/70 H 151/66 H 149/68 H Pulse Oximetry 96 96 95 01/06/18 04:00 01/06/18 08:00 01/06/18 09:00 Temperature 97.8 F 97.1 F L Pulse Rate 58 L 59 L 53 L Respiratory Rate 16 18 Blood Pressure 144/69 H 159/76 H Pulse Oximetry 96 95 01/06/18 12:00 Temperature 97.8 F Pulse Rate 59 L Respiratory Rate 20 Blood Pressure 132/63 Pulse Oximetry 95 Intake & Output 01/05/18 01/06/18 01/06/18 18:59 06:59 18:59 Intake Total 100 / 100 1000 / 1000 Balance 100 / 100 1000 / 1000 Weight 70.2 kg Intake: IV 100 / 100 1000 / 1000 NS Inj 1,000 ML @ 45 mls/hr IV. 1000 / 1000 CONT .[id number] JENNIFER Rx#: [id number] Ancef Inj 1,000 MG In NS Inj 100 / 100 100 ML @ 200 mls/hr IV.SIG Q6H JENNIFER Rx#:[id number] Other: # Voids 1 1 Narrative: Dressing dry and intact. Area of tegaderm starting to come off. Tender to palpation with mild swelling around incision site. Appropriate range of motion expected post operatively. Freely able to move distal digits. No calf pain. Negative Tab's sign. Good cap refill. 2+ pedal pulses. Neurovascular intact. - Urinary Catheter Management Indwelling Urethral Catheter Cath placed during this visit: yes, but has since been removed by the nurse Reason for continuing: Acute urinary retention Insertion date: 01/03/18 Insertion time: 23:30 Removal date: 01/05/18 Removal time: 14:00 Results - Labs CBC & Chem 7: 01/05/18 11:36 01/04/18 06:24 - Procedures ORIF right femoral neck fracture. Assessment and Plan - Assessment and Plan Fracture right femoral neck, subcapital, nondisplaced. Surgery: Open treatment internal fixation right femoral neck fracture with cannulated screws: POD # PLAN: Toe-touch weightbearing. Lovenox 30 mg daily for 25 days, DVT prophylaxis. [place] as needed for pain. Wound rec. increase to 7.5mg. Discharge to [facility]hab [facility] for discharge from orthopedic standpoint No dressing change. Add extra tegaderm over. Follow-up in 2 weeks. Stable orthopedically. Discharge meds per admitting service
== END 2018-01-06 20:07 ==
LOC: PHED 18:22 → PHEDA 22:57 → N05 01-04 01:45
PROVIDERS: ADMIT Internal Medicine; ATTEND Internal Medicine